=== PATIENT | female | born 1940 | race Caucasian/White ===

== ENCOUNTER 2018-10-27 11:47 | Inpatient (IN) | payer MEDICARE, OTHER ==
[~2018-10-27] VITALS: Ht 160 cm; Wt 74.5 kg
[2018-10-27] MEDS ORDERED: SODIUM CHLORIDE 0.9% 1,000 ML IVB ONE (11:59)
[2018-10-27] MEDS ORDERED: LORazepam 2MG/ML-1ML VIAL IV ONE (12:00)
[2018-10-27 13:08] LABS: Basophils # (auto) 0 uL; Basophils % (auto) 0.5 % (0.0-2.0); Eosinophils # (auto) 0.1 uL; Eosinophils % (auto) 0.9 % (0.0-7.0); Hematocrit 36.7 % (36.0-46.0); Hemoglobin 12.7 g/dL (12.2-16.2); Lymphocytes # (auto) 1.3 uL; Lymphocytes % (auto) 22.3 % (10.0-50.0); Mean Corpuscular Hgb Conc. 34.7 g/dL (32.0-36.0); Mean Corpuscular Volume 89.5 fL (80.0-100.0); Monocytes # (auto) 0.4 uL; Monocytes % (auto) 7.6 % (0.0-12.0); Neutrophils % (auto) 68.7 % (37.0-80.0); Platelet Count (auto) 297 10^3/uL (140-450); Red Cell Distribution Width 13.6 % (11.8-14.3); White Blood Cell 5.8 10^3/uL (4.4-10.8)
[2018-10-27 13:27] LABS: Alanine Aminotransferase 12 U/L (13-56); Albumin 3.7 g/dL (3.4-5.0); Anion Gap 8 (5-15); Aspartate Aminotransferase 10 U/L (15-37); BUN/Creatinine Ratio 14.8; Blood Alcohol < 3.0 mg/dL (0-5); Blood Urea Nitrogen 9 mg/dL (7-18); Calcium 8.8 mg/dL (8.5-10.1); Carbon Dioxide 27 mmol/L (21-32); Chloride 98 mmol/L (98-107); GFR African American 123 mL/min; GFR Non-African American 101 mL/min; Glucose 111 mg/dL (74-106); Magnesium 2.9 mg/dL (1.6-2.6); Sodium 133 mmol/L (136-145)
[2018-10-27 13:29] LABS: Alkaline Phosphatase 71 U/L (45-117); Bilirubin, Total 0.4 mg/dL (0.2-1.0); Total Protein 7.3 g/dL (6.4-8.2)
[2018-10-27 13:37] LABS: Carbamazepine (Tegretol) 8.7 ug/mL (4-12)
[2018-10-27] MEDS ORDERED: ACETAMINOPHEN 500 MG TAB PO PRN (14:30)
[2018-10-27] MEDS ORDERED: POTASSIUM EFFERVESENT TAB 25 MEQ PO ONE (14:30)
[2018-10-27] MEDS ORDERED: LORazepam 2MG/ML-1ML VIAL IV PRN (14:30)
[2018-10-27] MEDS ORDERED: MORPHINE SULF INJ 2 MG/ML SYRINGE 1ML IV PRN (14:30)
[2018-10-27] MEDS ORDERED: HYDROcodone-ACET 5/325MG TAB PO PRN (14:30)
[2018-10-27] MEDS ORDERED: NITROGLYCERIN 0.4 MG SL TAB SL PRN (14:30)
[2018-10-27] MEDS: SODIUM CHLORIDE 0.9% 1,000 ML IV SCH (15:22)
[2018-10-27] MEDS ORDERED: POTASSIUM CHL 20 Meq TABLET PO ONE (15:30)
[2018-10-27] MEDS: MORPHINE SULF INJ 2 MG/ML SYRINGE 1ML IV PRN ×2 (16:33→22:13)
[2018-10-27] MEDS: ONDANSETRON HCL 4 MG/2 ML VIAL IV PRN ×2 (16:34→22:13)
[2018-10-27 19:38] LABS: Alcohol, Urine < 3.0 mg/dL (0-5); Amphetamine Screen, Urine NEGATIVE (NEGATIVE); Barbiturate Scree,Urine POSITIVE (NEGATIVE); Benzodiazephine Screen, Urine NEGATIVE (NEGATIVE); Cannabinoid Screen, Urine NEGATIVE (NEGATIVE); Cocaine Screen, Urine NEGATIVE (NEGATIVE); Opiate Scree,Urine NEGATIVE (NEGATIVE); Phencyclidine Screen, Urine NEGATIVE (NEGATIVE)
--- NOTE | 2018-10-27 20:20 | NUR ---
PT ARRIVED ON UNIT PT ARRIVED ON UNIT VIA STRETCHER. NO S/S OF SOB. PT STATES THAT SHE IS IN SOME PAIN. PT IS A/OX4. ORIENTED PT TO CALL LIGHT AND PHONE. WILL CONTINUE TO MONITOR FOR CHANGES.
[2018-10-27 20:44] VITALS: BP 137/65
[2018-10-27] MEDS: PHENobarbital 32.4 MG TAB PO SCH (21:36)
[2018-10-27] MEDS: carBAMazepine 200 MG TAB PO SCH (21:36)
--- NOTE | 2018-10-27 21:59 | NUR ---
Missing Medications Upon medication reconciliation, pt states that she is missing a couple of her home medications that she had when in the ED. She states that "not all of my medications are here, they were here when I was in the emergency room. They are in a plastic round container". I have called the ED and they stated that they will look for the missing medications. Will follow up and input the missing medications.
[2018-10-27 22:00] VITALS: BP 147/76
[2018-10-27] MEDS ORDERED: FAMOTIDINE (10MG/ML) 2ML VL IV SCH (22:00)
[2018-10-27] MEDS ORDERED: PROM25TA5 PO (23:19)
[2018-10-27] MEDS ORDERED: DIPH1TAB PO (23:19)
[2018-10-27] MEDS ORDERED: METO-169 PO (23:19)
[2018-10-27] MEDS ORDERED: BENZ100C97 PO (23:19)
[2018-10-27] MEDS ORDERED: OMEP20TA PO (23:19)
[2018-10-27] MEDS ORDERED: CARB100C3 PO (23:19)
[2018-10-27] MEDS ORDERED: METH750T3 PO (23:19)
[2018-10-27] MEDS ORDERED: PHEN32.49 PO (23:19)
--- NOTE | 2018-10-27 23:36 | NUR ---
Unable to Attain Family Hx Pt states that she is adopted and therefore does not know her biological family history.
[2018-10-28] MEDS: SODIUM CHLORIDE 0.9% 1,000 ML IV SCH ×3 (01:00→21:00)
[2018-10-28] MEDS: ONDANSETRON HCL 4 MG/2 ML VIAL IV PRN ×2 (08:12→22:02)
[2018-10-28] MEDS: MORPHINE SULF INJ 2 MG/ML SYRINGE 1ML IV PRN ×2 (08:13→22:02)
--- NOTE | 2018-10-28 08:15 | NUR ---
Patient complained that in the ER she lose two of her OTC medications. (Zyrtec and Salon patches). Also that they dropped one of her pill bottles and half of them are gone because the pills went all over the floor. She also has her home medications in the drawer at bedside and wants to wait for the doctor to show him/her the correct doses of her medications because she states they are ordered wrong. Explained that we still can't keep the medications at bedside and the patient said just until the MD comes to show them. Will take meds to phar. later after MD makes rounds. Addendum: 10/28/18 at 0926 by Bobbi Reyes RN that the ER lost two of her OTC medications
--- NOTE | 2018-10-28 08:16 | NUR ---
Patient refused to place her medications at the pharmacy and she also stated that she some of her meds is missing, Brody (JOSÉ MIGUEL) made aware.
--- NOTE | 2018-10-28 08:45 | NUR ---
Spoke to ER staff and they said that the patient had a friend there that may have the OTC medications with him. Also that the Financial Systems Manager opened the pill bottle and did drop the pills on the floor.
[2018-10-28 08:54] VITALS: BP 129/59
[2018-10-28 09:28] LABS: Basophils # (auto) 0 uL; Eosinophils # (auto) 0.1 uL; Eosinophils % (auto) 2.2 % (0.0-7.0); Hematocrit 36.8 % (36.0-46.0); Hemoglobin 12.5 g/dL (12.2-16.2); Lymphocytes # (auto) 1.4 uL; Lymphocytes % (auto) 30.1 % (10.0-50.0); Mean Corpuscular Hemoglobin 30.8 pg (28.0-32.0); Mean Corpuscular Hgb Conc. 33.9 g/dL (32.0-36.0); Mean Corpuscular Volume 90.8 fL (80.0-100.0); Monocytes # (auto) 0.4 uL; Monocytes % (auto) 8.9 % (0.0-12.0); Neutrophils # (auto) 2.8 uL; Neutrophils % (auto) 57.8 % (37.0-80.0); Nucleated Red Blood Cells % 0.1 %; Platelet Count (auto) 319 10^3/uL (140-450); Red Blood Cells 4.06 10^6/uL (4.0-5.20); Red Cell Distribution Width 13.7 % (11.8-14.3); White Blood Cell 4.8 10^3/uL (4.4-10.8)
[2018-10-28 09:45] LABS: Potassium 3.6 mmol/L (3.5-5.1)
[2018-10-28 09:50] LABS: Calcium 8.4 mg/dL (8.5-10.1); Magnesium 2.7 mg/dL (1.6-2.6)
[2018-10-28] MEDS: PHENobarbital 32.4 MG TAB PO SCH ×2 (09:51→21:31)
[2018-10-28] MEDS: carBAMazepine 200 MG TAB PO SCH ×2 (09:51→21:31)
[2018-10-28] MEDS: FAMOTIDINE 20 MG TAB PO SCH (09:51)
[2018-10-28] MEDS: amLODIPine BESYLATE 5 MG TAB PO SCH (09:51)
[2018-10-28 12:30] VITALS: BP 129/73
--- NOTE | 2018-10-28 14:00 | NUR ---
Patient refused CT scan.
--- NOTE | 2018-10-28 14:10 | NUR ---
Patient refused Psy consultation.
--- NOTE | 2018-10-28 14:15 | NUR ---
Patient changed her mind, wants CT now.
--- NOTE | 2018-10-28 14:24 | NUR ---
Recdeived referral to see pt who is alert and oriented. Pt is having family issues that have been going on for years. The siblings are fighting over money. Informed pt that she might need some legal advise. Gave pt the Advance Directive.
--- NOTE | 2018-10-28 14:30 | NUR ---
REQUESTING DR. ELLIOTT PATIENT REQUESTED DR. ELLIOTT TO BE HER HOSPITALIST TOMORROW, WILL ENDORSE TO NEXT SHIFT.
--- NOTE | 2018-10-28 15:28 | NUR ---
REQUESTING CHANGED TO DR. Keshav DAVENPORT Patient requesting Dr. Keshav Davenport to her hospitalist for tomorrow, will endorse to next shift.
--- NOTE | 2018-10-28 16:15 | NUR ---
Patient is having asthma attack, Oxygen cannular 2 L placed. VS ; T 98.0 HR 91 RR 22 O2 95% BP 163/99, Dr. Flaherty paged.
--- NOTE | 2018-10-28 16:16 | NUR ---
Received new orders from Dr. Flaherty, RT paged for Breathing treatment.
--- NOTE | 2018-10-28 16:30 | NUR ---
Dr. Flaherty called back stated Dr. Keshav Purvis made aware of patient is requesting Dr. Keshav purvis to her hospitalist.
[2018-10-28] MEDS ORDERED: IPRATROPIUM BROM 0.5 MG/2.5ML INH SOL ONE (16:32)
[2018-10-28] MEDS ORDERED: ALBUTEROL SULF 2.5 MG/0.5ML(0.5%) NEB SOLN ONE (16:32)
[2018-10-28] MEDS: ALBUTEROL SULF 2.5 MG/0.5ML(0.5%) NEB SOLN NEB PRN ×2 (16:36→21:14)
[2018-10-28] MEDS: IPRATROPIUM BROM 0.5 MG/2.5ML INH SOL NEB PRN ×2 (16:36→21:14)
[2018-10-28 17:11] VITALS: BP 134/68
--- NOTE | 2018-10-28 19:57 | NUR ---
Opening Note Assumed pt care from day shift nurse. Pt is a/ox4 with no s/s of distress or SOB. Pt is currently out of bed on the bedside commode. Pt tolerated ambulation to commode without difficulty. Discussed POC with pt; pt verbalized understanding. Safety measures maintained with side barnes;s up, bed in lowest position, side rails padded and call light within reach. Will continue to monitor for changes q1hr and prn.
[2018-10-28 21:26] VITALS: BP 134/68
[2018-10-28 22:00] VITALS: BP 120/71
--- NOTE | 2018-10-28 23:23 | NUR ---
Dr James At Bedside Dr James advised pt to visit him at his office this next Friday 11/03 at 1100. No new orders implemented at this time.
[2018-10-29] VITALS (7 sets, daily range): BP systolic 127–143; BP diastolic 59–85
[2018-10-29] MEDS: ALBUTEROL SULF 2.5 MG/0.5ML(0.5%) NEB SOLN NEB PRN ×4 (01:19→18:38)
[2018-10-29] MEDS: IPRATROPIUM BROM 0.5 MG/2.5ML INH SOL NEB PRN ×4 (01:19→18:38)
[2018-10-29] MEDS: SODIUM CHLORIDE 0.9% 1,000 ML IV SCH ×2 (03:41→14:11)
[2018-10-29] MEDS: ONDANSETRON HCL 4 MG/2 ML VIAL IV PRN ×2 (06:41→22:10)
[2018-10-29] MEDS: MORPHINE SULF INJ 2 MG/ML SYRINGE 1ML IV PRN ×2 (06:48→22:10)
--- NOTE | 2018-10-29 07:40 | NUR ---
OPENING SHIFT NOTE Received report on patient , patient is comfortably resting in bed. bed at lowest locked position, side rails up x2 and call light within reach. Will continue to round prn.
[2018-10-29] MEDS: FAMOTIDINE 20 MG TAB PO SCH (10:00)
[2018-10-29] MEDS: PHENobarbital 32.4 MG TAB PO SCH ×2 (10:07→22:09)
[2018-10-29] MEDS: amLODIPine BESYLATE 5 MG TAB PO SCH (10:07)
[2018-10-29] MEDS: carBAMazepine 200 MG TAB PO SCH ×2 (10:08→22:10)
--- NOTE | 2018-10-29 19:40 | NUR ---
Opening Shift Note Assumed care of patient, alert and oriented x 4. On 2L oxygen via nasal cannula. Ambulatory with min assist to bedside commode. No S/S of distress/SOB or pain. Bed in lowest locked position, side rails up x 2, call light within reach, seizure precautions in place. Instructed on POC and to call for assist PRN, will continue to monitor for changes Q1hr and PRN.
[2018-10-30] VITALS (7 sets, daily range): BP systolic 123–180; BP diastolic 60–88
[2018-10-30] MEDS: SODIUM CHLORIDE 0.9% 1,000 ML IV SCH (03:00)
[2018-10-30] MEDS: ONDANSETRON HCL 4 MG/2 ML VIAL IV PRN ×2 (07:15→18:01)
[2018-10-30] MEDS: MORPHINE SULF INJ 2 MG/ML SYRINGE 1ML IV PRN ×2 (07:15→20:25)
--- NOTE | 2018-10-30 07:20 | NUR ---
Opening Shift Note Assumed care of patient, awake and alert. No S/S of distress/SOB or pain. Instructed on POC and to call for assist PRN, will continue to monitor for changes Q1hr and PRN.
[2018-10-30] MEDS: FAMOTIDINE 20 MG TAB PO SCH (09:58)
[2018-10-30] MEDS: carBAMazepine 200 MG TAB PO SCH ×2 (09:59→22:00)
[2018-10-30] MEDS: amLODIPine BESYLATE 5 MG TAB PO SCH (10:00)
[2018-10-30] MEDS: PHENobarbital 32.4 MG TAB PO SCH ×2 (10:00→22:00)
[2018-10-30] MEDS ORDERED: LEVOFLOXACIN 500 MG TAB PO ONE (11:00)
[2018-10-30] MEDS: ALBUTEROL SULF 2.5 MG/0.5ML(0.5%) NEB SOLN NEB SCH ×3 (11:15→23:13)
[2018-10-30] MEDS: ACETYLCYSTEINE 10 %(100MG/ML) SOL 4ML NEB SCH ×3 (11:15→23:13)
[2018-10-30] MEDS: IPRATROPIUM BROM 0.5 MG/2.5ML INH SOL NEB SCH ×3 (11:34→23:13)
[2018-10-30] MEDS ORDERED: LACTULOSE 20Gm/30ML SOLN PO PRN (12:45)
[2018-10-30] MEDS ORDERED: LACTULOSE 20Gm/30ML SOLN PO ONE (12:45)
--- NOTE | 2018-10-30 13:10 | NUR ---
assessment Patient is a 78 year old female who is alert and oriented. Prior to admission patient lived home alone and functioned independently. Patients PCP is Dr James. Patient has a fww for home use. Patient informed me she feels safe returning home on discharge. I informed patient she has a ss consult that states she is concerned for her well being due to family issues. Patient informed me her mother is having issues with her will and patients brother. Patient informed me her brother wants to be the POA for financial issues. I informed patient that I could not help her with her mothers and brothers last will and testament. Patient informed me she is fine and she is not worried about her well being. Patient may benefit from a home health safety and med management on discharge. Patient verbalized understanding and agreed to discharge plan home. Addendum: 10/30/18 at 1318 by Fawn SHEPARD Amended: Links added.
--- NOTE | 2018-10-30 14:10 | NUR ---
Reaction Patient calling out stating she is having allergic reaction to lactulose. Patient reports swollen tongue and shortness of breath. Upon assessment vital signs stable, tongue not swollen. Dr. Sandoval notified; Jeremías ordered.
[2018-10-30] MEDS ORDERED: diphenhdrAMINE HCL 50 MG/1 ML VL IV ONE (14:15)
--- NOTE | 2018-10-30 16:47 | NUR ---
D/C planning Per consult for home health safety evaluation, physical therapy, and medication management. Per Fawn Bobby requested [facility] ph:) Fax: ( [phone]) faxed medical records. Per Mike Bhatti Pt has been accepted and service to start within 48 hrs upon d/c. Addendum: 10/30/18 at 1650 by ANGY LE Amended: Links added.
--- NOTE | 2018-10-30 18:00 | NUR ---
Respiratory note: PT REFUSED MED NEB TX AT THIS TIME. PT CLAIMS IT UPSETS HER STOMACH. PT IN NO RESPIRATORY DISTRESS, WILL RETURN FOR NEXT SCHEDULED MED NEB TX.
--- NOTE | 2018-10-30 19:50 | NUR ---
Opening Shift Note Assumed care of patient, alert and oriented x 4. Ambulatory with min assist to bedside commode. Patient appears anxious and nauseated. Reported pain level of 8/10. Bed in lowest locked positions, side rails up x 2, call light within reach, seizure precautions in place, padding on side rails and suction working at bedside. Instructed on POC and to call for assist PRN, will continue to monitor for changes Q1hr and PRN.
[2018-10-30] MEDS: BISACODYL 5 MG EC TAB PO SCH (22:00)
[2018-10-31] MEDS: ONDANSETRON HCL 4 MG/2 ML VIAL IV PRN ×2 (00:19→06:16)
[2018-10-31] MEDS: MORPHINE SULF INJ 2 MG/ML SYRINGE 1ML IV PRN ×2 (02:12→06:16)
[2018-10-31 04:30] VITALS: BP 111/78
[2018-10-31] MEDS: IPRATROPIUM BROM 0.5 MG/2.5ML INH SOL NEB SCH ×2 (06:39→11:54)
[2018-10-31] MEDS: ALBUTEROL SULF 2.5 MG/0.5ML(0.5%) NEB SOLN NEB SCH ×2 (06:40→11:55)
[2018-10-31] MEDS: ACETYLCYSTEINE 10 %(100MG/ML) SOL 4ML NEB SCH ×2 (06:40→11:55)
[2018-10-31 09:49] VITALS: BP 162/77
[2018-10-31] MEDS ORDERED: LEVO-28 PO (09:57)
[2018-10-31] MEDS: BISACODYL 5 MG EC TAB PO SCH (10:00)
[2018-10-31] MEDS ORDERED: LEVOFLOXACIN 500 MG TAB PO SCH (10:00)
[2018-10-31] MEDS: PHENobarbital 32.4 MG TAB PO SCH (10:28)
[2018-10-31] MEDS: FAMOTIDINE 20 MG TAB PO SCH (10:29)
[2018-10-31] MEDS: carBAMazepine 200 MG TAB PO SCH (10:29)
[2018-10-31 10:54] VITALS: BP 129/60
== END 2018-10-31 11:45 | disposition home health service (06) | DRG 100 ==
LOC: EDUNIT# 11:47 → EDBD 11:47 → ER 11:47 → TELE 11:48 → TELE-CENTR 20:32 → CENTRAL 10-30 12:21
PROVIDERS: ADMIT Nurse Practitioner Acute Care; ATTEND Internal Medicine
DX: G40.909 Epilepsy, unspecified, not intractable, without status epilepticus (principal); J96.00 Acute respiratory failure, unspecified whether with hypoxia or hypercapnia; E87.1 Hypo-osmolality and hyponatremia; J45.901 Unspecified asthma with (acute) exacerbation; I10 Essential (primary) hypertension; E87.6 Hypokalemia; I05.9 Rheumatic mitral valve disease, unspecified; J44.9 Chronic obstructive pulmonary disease, unspecified; M19.90 Unspecified osteoarthritis, unspecified site; M48.02 Spinal stenosis, cervical region; K21.9 Gastro-esophageal reflux disease without esophagitis; I67.2 Cerebral atherosclerosis; Z86.73 Personal history of transient ischemic attack (TIA), and cerebral infarction without residual deficits; I25.2 Old myocardial infarction; Z86.61 Personal history of infections of the central nervous system; Z79.899 Other long term (current) drug therapy; Z88.8 Allergy status to other drugs, medicaments and biological substances; Z88.6 Allergy status to analgesic agent; Z88.1 Allergy status to other antibiotic agents; Z88.5 Allergy status to narcotic agent; Z88.0 Allergy status to penicillin; Z91.013 Allergy to seafood
CPT/HCPCS: 36415; 70450; 71045; 72125; 80048; 80053; 80156; 80184; 80307; 80320; 83735; 85025; 87070; 87205; 93005; 93306; 94640; 94761; 96361; 96374; 96375; 97116; 97163; 97530; G0378; J2405

== ENCOUNTER 2019-08-21 17:27 | Emergency (ER) | payer MEDICARE, OTHER ==
[~2019-08-21] VITALS: Ht 165.1 cm; Wt 81.6 kg
[~2019-08-21 17:27] MED LIST: BENZ100C97 PO; CARB100C3 PO; DIPH1TAB PO; LEVO-28 PO; METH750T3 PO; METO-169 PO; OMEP20TA PO; PHEN32.44 PO; PROM25TA5 PO
[2019-08-21 19:03] LABS: Basophils # (auto) 0 10 ^3/uL (0-0.2); Basophils % (auto) 0.4 % (0.0-2.0); Eosinophils # (auto) 0.1 10 ^3/uL (0-0.8); Eosinophils % (auto) 1.7 % (0.0-7.0); Hematocrit 40.3 % (36.0-46.0); Hemoglobin 13.3 g/dL (12.2-16.2); Lymphocytes # (auto) 1.4 10 ^3/uL (0.4-5.4); Lymphocytes % (auto) 18.6 % (10.0-50.0); Mean Corpuscular Hemoglobin 30.5 pg (28.0-32.0); Mean Corpuscular Hgb Conc. 32.9 g/dL (32.0-36.0); Mean Corpuscular Volume 92.7 fL (80.0-100.0); Monocytes # (auto) 0.6 10 ^3/uL (0-1.3); Monocytes % (auto) 7.4 % (0.0-12.0); Neutrophils # (auto) 5.5 10 ^3/uL (1.6-8.6); Neutrophils % (auto) 71.9 % (37.0-80.0); Nucleated Red Blood Cells % 0.1 %; Platelet Count (auto) 270 10^3/uL (140-450); Red Blood Cells 4.35 10^6/uL (4.0-5.20); Red Cell Distribution Width 13.6 % (11.8-14.3); White Blood Cell 7.7 10^3/uL (4.4-10.8)
[2019-08-21 19:17] LABS: Alanine Aminotransferase 21 U/L (13-56); Albumin 3.8 g/dL (3.4-5.0); Anion Gap 9 (5-15); Aspartate Aminotransferase 13 U/L (15-37); BUN/Creatinine Ratio 21.8; Blood Urea Nitrogen 17 mg/dL (7-18); Calcium 8.4 mg/dL (8.5-10.1); Carbon Dioxide 24 mmol/L (21-32); Chloride 96 mmol/L (98-107); GFR African American 92 mL/min; GFR Non-African American 76 mL/min; Glucose 101 mg/dL (74-106); Magnesium 2.5 mg/dL (1.6-2.6); Potassium 3.8 mmol/L (3.5-5.1); Sodium 129 mmol/L (136-145)
[2019-08-21 19:20] LABS: Carbamazepine (Tegretol) 8.3 ug/mL (4-12)
[2019-08-21 19:22] LABS: Alkaline Phosphatase 81 U/L (45-117); Bilirubin, Total 0.3 mg/dL (0.2-1.0); Total Protein 7.6 g/dL (6.4-8.2)
[2019-08-21] MEDS ORDERED: HYDROcodone-ACET 5/325MG TAB PO ONE (20:15)
[2019-08-21 20:45] VITALS: BP 168/75
== END 2019-08-21 21:24 | disposition home or self-care (01) ==
LOC: ER 17:27 → EDBD 17:27 → ER 21:24
DX: S16.1XXA Strain of muscle, fascia and tendon at neck level, initial encounter (principal); S40.012A Contusion of left shoulder, initial encounter; S09.8XXA Other specified injuries of head, initial encounter; Z88.8 Allergy status to other drugs, medicaments and biological substances; Z88.6 Allergy status to analgesic agent; Z88.1 Allergy status to other antibiotic agents; Z79.899 Other long term (current) drug therapy; Z90.49 Acquired absence of other specified parts of digestive tract; W19.XXXA Unspecified fall, initial encounter; Y93.89 Activity, other specified; Y92.89 Other specified places as the place of occurrence of the external cause; Y99.8 Other external cause status
CPT/HCPCS: 36415; 70450; 72125; 73030; 80053; 80156; 80184; 83735; 84484; 85025; 93005

== ENCOUNTER 2024-09-11 09:11 | Inpatient (IN) | payer MEDICARE, OTHER ==
[~2024-09-11] VITALS: Ht 160 cm; Wt 78.3 kg
[~2024-09-11 09:11] MED LIST changes: -DIPH1TAB PO; -LEVO-28 PO; +LEVO500T91 PO; +METH-1182 PO; -METH750T3 PO; -METO-169 PO; +METO-289 PO; +PROM25TA10 PO; -PROM25TA5 PO; +[UNRECOGNIZED DRUG - CODE] PO
--- NOTE | 2024-09-11 09:42 | ED.PDOC ---
History of Present Illness HPI Comments 83 year old female with a Hx of HTN, Asthma, AR, CVA, GERD, High Lipids, and a Mitral Valve prolapse presents to the ED for the c/c of a Lesion to her Labia region. Pt states that she has had her lesion for the past 2x weeks, and notes of associated SOB and Generalized weakness at this time. Pt is noted to be SAT on 100 RA w/o O2 assistance. No other associated symptoms, modifiers, recent injuries or sick contacts present at this time. Time Seen by MD: 09:37 Primary Care Provider: ETHEL Reviewed Notes: Nurses Notes, Medications, Allergies Allergies: Coded Allergies: Aspirin (Verified Allergy, Unknown, 10/27/18) Azithromycin (Verified Allergy, Unknown, 10/27/18) Codeine (Verified Allergy, Unknown, 10/27/18) Penicillins (Verified Allergy, Unknown, 10/27/18) Phenytoin (Verified Allergy, Unknown, 10/27/18) Shellfish Allergy (Verified Allergy, Unknown, 10/27/18) Tetracycline (Verified Allergy, Unknown, 10/27/18) Home Meds Active Scripts Levofloxacin Hemihydrate (LEVOFLOXACIN) 500 Mg Tab, 500 MG PO DAILY for 4 Days, #4 TAB Prov:KATHRYN LEON MD 10/31/18 Reported Medications Omeprazole (Gnp Omeprazole) 20 Mg Tab, 20 MG PO BID, TAB 10/27/18 Diphenoxylate W/ Atropine (Diphenoxylate Hydrochlori 2.5-0.025 mg) 1 Tab Tab, 1 TAB PO 6XD, TAB 10/27/18 Phenobarbital (PHENOBARBITAL) 32.4 Mg Tb, 32.4 MG PO TID 10/27/18 Benzonatate (Benzonatate) 100 Mg Cap, 1 CAP PO BID, #30 CAP 10/27/18 Metoprolol Succinate (Metoprolol Succinate Er) 50 Mg Tab, 50 MG PO DAILY for 30 Days, MG 10/27/18 Methocarbamol (Methocarbamol) 750 Mg Tab, 750 MG PO TID for 30 Days, MG 10/27/18 Promethazine Hcl (Promethazine Hcl) 25 Mg Tab, 25 MG PO ONCE 10/27/18 Carbamazepine (Carbamazepine) 100 Mg Chw, 200 MG PO TID for 30 Days, MG 10/27/18 Information Source: Patient Mode of Arrival: Wheelchair Severity: Moderate Timing: Weeks Duration: Since onset Prehospital treatment: None Past Medical History PAST MEDICAL HISTORY: Cancer, COPD, CVA, GERD, High Lipids, HTN, AR, Seizures Surgical History: Hysterectomy, Tonsillectomy SAFETY INSPECTOR History: No Pertinent SAFETY INSPECTOR History Family History Family History: Family hx of heart dino Social History Smoker: Non-Smoker Alcohol: Denies ETOH Use Drugs: Denies Drug Use Lives In: Home Constitutional: denies: chills, diaphoresis, fatigue, fever, malaise, sweats, weakness, others EENTM: denies: blurred vision, double vision, ear bleeding, ear discharge, ear drainage, ear pain, ear ringing, eye pain, eye redness, hearing loss, mouth pain, mouth swelling, nasal discharge, nose bleeding, nose congestion, nose pain, photophobia, tearing, throat pain, throat swelling, voice changes, others Respiratory: reports: SOB at rest, shortness of breath; denies: cough, hemoptysis, orthopnea, SOB with excertion, stridor, wheezing, others Cardiovascular: denies: chest pain, dizzy spells, diaphoresis, Dyspnea on exertion, edema, irregular heart beat, left arm pain, lightheadedness, palpitations, PND, syncope, others Gastrointestinal: denies: abdomen distended, abdominal pain, blood streaked bowels, constipated, diarrhea, dysphagia, difficulty swallowing, hematemesis, melena, nausea, poor appetite, poor fluid intake, rectal bleeding, rectal pain, vomiting, others Genitourinary: denies: abnormal vagina bleeding, burning, dyspareunia, dysuria, flank pain, frequency, hematuria, incontinence, pain, , vagina discharge, urgency, others Neurological: denies: dizziness, fainting, headache, left sided numbness, left sided weakness, numbness, paresthesia, pre-existing deficit, right sided numbness, right sided weakness, seizure, speech problems, tingling, tremors, weakness, others Musculoskeletal: denies: back pain, gout, joint pain, joint swelling, muscle pain, muscle stiffness, neck pain, others Integumetry: reports: lesions; denies: bruises, change in color, change in hair/nails, dryness, laceration, lumps, rash, wounds, others Allergic/Immunocompromised: denies: Difficulty Healing, Frequent Infections, Hives, Itching, others Hematologic/Lymphatic: denies: anemia, blood clots, easy bleeding, easy bruising, swollen glands, others Endocrine: denies: excessive hunger, excessive sweating, excessive thirst, excessive urination, flushing, intolerance to cold, intolerance to heat, unexplained weight gain, unexplained weight loss, others Psychiatric: denies: anxiety, bipolar disorder, depression, hopeless, panic disorder, schizophrenia, sleepless, suicidal, others All Other Systems: Reviewed and Negative Physical Exam General Appearance: Moderate Distress, Normal HEENT: Normal ENT Inspection, Pharynx Normal, TMs Normal Neck: Full Range of Motion, Non-Tender, Normal, Normal Inspection Respiratory: Accessory Muscle Use, Chest Non-Tender, No Accessory Muscle Use, Other (Coarse breath sounds) Cardiovascular: No Edema, No JVD, No Murmur, No Gallop, Normal Peripheral Pulses, Regular Rate/Rhythm Breast Exam: Deferred Gastrointestinal: No Organomegaly, Non Tender, No Pulsatile Mass, Normal Bowel Sounds, Soft Genitalia: Deferred Pelvic: Deferred Rectal: Deferred Extremities: No calf tenderness, Normal capillary refill, Non-tender, No pedal edema Musculoskeletal : Apperance: Normal Neurologic: Alert, electronic installer II-XII nml as Tested, No Motor Deficits, Normal Affect, Normal Mood, No Sensory Deficits Cerebellar Function: NOT DONE Reflexes: NOT DONE Skin: Dry, Normal Color, Warm Peripheral Pulses: 3+ Radial (R), 3+ Radial (L) Lymphatic: No Adenopathy Was a procedure done? Was a procedure done?: No Differential Dx Considerations may include: Pneumonitis Electrolyte imbalance X-Ray, Labs, Meds, VS Vital Signs Date Time Temp Pulse Resp B/P (MAP) Pulse Ox O2 Delivery O2 Flow Rate FiO2 09/11/24 10:20 98.4 80 18 141/70 (93) 98 98.4 09/11/24 10:20 80 18 98 Room Air* 0 21 09/11/24 09:27 98.3 78 20 121/53 (75) 99 98.3 Lab Test 09/11/24 10:33 09/11/24 09:21 Range/Units White Blood Count 5.5 4.4-10.8 10^3/uL Red Blood Count 3.81 L 4.0-5.20 10^6/uL Hemoglobin 11.5 L 12.2-16.2 g/dL Hematocrit 33.4 L 36.0-46.0 % Mean Corpuscular Volume 87.7 80.0-100.0 fL Mean Corpuscular Hemoglobin 30.2 28.0-32.0 pg Mean Corpuscular Hemoglobin Concent 34.4 32.0-36.0 g/dL Red Cell Distribution Width 13.4 11.8-14.3 % Platelet Count 262 140-450 10^3/uL Mean Platelet Volume 6.7 L 6.9-10.8 fL Neutrophils (%) (Auto) 57.8 37.0-80.0 % Lymphocytes (%) (Auto) 24.8 10.0-50.0 % Monocytes (%) (Auto) 15.6 H 0.0-12.0 % Eosinophils (%) (Auto) 1.3 0.0-7.0 % Basophils (%) (Auto) 0.5 0.0-2.0 % Neutrophils # (Auto) 3.2 1.6-8.6 10 ^3/uL Lymphocytes # (Auto) 1.4 0.4-5.4 10 ^3/uL Monocytes # (Auto) 0.9 0-1.3 10 ^3/uL Eosinophils # (Auto) 0.1 0-0.8 10 ^3/uL Basophils # (Auto) 0 0-0.2 10 ^3/uL Nucleated Red Blood Cells 0.1 % Prothrombin Time 11.4 9.3-11.8 sec Prothrombin Time INR 1.08 0.9-1.15 Activated Partial Thromboplast Time 31.0 24.5-34.5 SEC Sodium Level 132 L 136-145 mmol/L Potassium Level 3.3 L 3.5-5.1 mmol/L Chloride Level 96 L 98-107 mmol/L Carbon Dioxide Level 24 20-31 mmol/L Anion Gap 12 5-15 Blood Urea Nitrogen 7 L 9-23 mg/dL Creatinine 0.88 0.550-1.02 mg/dL Glomerular Filtration Rate Calc 66 >90 mL/min BUN/Creatinine Ratio 8.0 L 10.0-20.0 Serum Glucose 107 H 74-106 mg/dL Lactic Acid Level 1.7 0.4-2.0 mmol/L Calcium Level 9.7 8.7-10.4 mg/dL Total Bilirubin 0.4 0.2-1.0 mg/dL Aspartate Amino Transferase (AST) 19 13-40 U/L Alanine Aminotransferase (ALT) < 9 7-40 U/L Alkaline Phosphatase 69 46-116 U/L Total Protein 6.8 5.7-8.2 g/dL Albumin 4.4 3.2-4.8 g/dL POC Glucose 120 H 70-106 mg/dl Current Medications Medications (Trade) Dose Ordered Sig/Ayden Route Start Time Stop Time Status Last Admin Sodium Chloride 1,000 ml @ 1,000 mls/hr Q1H ONCE IV 09/11/24 09:45 09/11/24 10:44 DC 09/11/24 10:32 Levofloxacin/ Dextrose 100 ml @ 100 mls/hr ONCE ONCE IV 09/11/24 10:45 09/11/24 11:11 DC 09/11/24 10:51 Methylprednisolone Sodium Succinate (Solu Medrol) 125 mg ONCE ONCE IV 09/11/24 11:15 09/11/24 11:16 DC 09/11/24 11:16 Diphenhydramine HCl (Benadryl Injection) 25 mg ONCE ONCE IV 09/11/24 11:15 09/11/24 11:16 DC 09/11/24 11:16 Ondansetron HCl (Zofran) 4 mg ONCE ONCE IV 09/11/24 11:15 09/11/24 11:16 DC 09/11/24 11:16 Patient alert. Complaining of shortness a breath. Vitals stable. Answering questions. States that she has been having lesion in the pelvic area for some time She does not know exactly how the lesion has been there She is using accessory muscles for respiration Possible sepsis. Chest x-ray reviewed does show pneumonia. CT of the abdomen reviewed does show hernia. Was given antibiotics. Explained to the patient. Continue monitoring. Spoke with general surgeon. Intervention radiology consultation. Urology consultation. PATIENT: SIVA CASTILLO ACCT: [id number] UNIT: [id number] : 1940 LOC: ER ROOM / BED: / AGE / SEX: 83 / F ADM STATUS: REG ER SERVICE 0933 ORDERING PHYSICIAN: YUE HERNANDEZ MD PROCEDURE(s): CXRP - CHEST PORTABLE REASON: sob ORDER NUMBER(s): [id number], ACCESSION NUMBER(s): [id number] EXAM: XR Chest, 1 View CLINICAL INDICATION: Pain TECHNIQUE: Frontal view of the chest. COMPARISON: No relevant prior studies available. FINDINGS: LUNGS AND PLEURAL SPACES: Right basilar atelectasis or pneumonia. Pulmonary v enous congestion. No pneumothorax. HEART: Unremarkable. No cardiomegaly. MEDIASTINUM: Unremarkable. Normal mediastinal contour. BONES/JOINTS: Unremarkable. No acute fracture. IMPRESSION: 1. Right basilar atelectasis or pneumonia. 2. Pulmonary venous congestion. PATIENT: SIVA CASTILLO ACCT: [id number] UNIT: [id number] : 1940 LOC: ER ROOM / BED: / AGE / SEX: 83 / F ADM STATUS: REG ER SERVICE 0933 ORDERING PHYSICIAN: YUE HERNANDEZ MD PROCEDURE(s): ABPL - CT AB PEL WO CON-NO ORAL OR IV REASON: pelvicmass ORDER NUMBER(s): [id number], ACCESSION NUMBER(s): [id number] EXAM: CT Abdomen and Pelvis Without Intravenous Contrast CLINICAL INDICATION: Pain TECHNIQUE: Axial computed tomography images of the abdomen and pelvis without intravenous contrast. This CT exam was performed using one or more of the following dose reduction techniques: automated exposure control, adjustment of the mA and/or kV according to patient size, and/or use of iterative reconstruction technique. COMPARISON: No relevant prior studies available. FINDINGS: LUNG BASES: Unremarkable. No mass. No consolidation. ABDOMEN: LIVER: Fatty infiltration of the liver. GALLBLADDER AND BILE DUCTS: Unremarkable. No calcified stones. No ductal dilation. PANCREAS: Unremarkable. No ductal dilation. SPLEEN: Unremarkable. No splenomegaly. ADRENALS: Unremarkable. No mass. KIDNEYS AND URETERS: Unremarkable. No obstructing stones. No hydronephrosis. STOMACH AND BOWEL: Fecal retention in the colon consistent with constipation. Colonic diverticulosis without acute diverticulitis. No obstruction. PELVIS: APPENDIX: No findings to suggest acute appendicitis. BLADDER: Unremarkable. No stones. REPRODUCTIVE: Unremarkable as visualized. ABDOMEN and PELVIS: INTRAPERITONEAL SPACE: Unremarkable. No free air. No significant fluid collection. 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 No acute fracture. No dislocation. SOFT TISSUES: Umbilical hernia containing fat. VASCULATURE: Scattered calcified atherosclerotic disease of aorta. No abdominal aortic aneurysm. LYMPH NODES: Unremarkable. No enlarged lymph nodes. IMPRESSION: 1. Fecal retention in the colon consistent with constipation. 2. Umbilical hernia containing fat. 3. Colonic diverticulosis without acute diverticulitis. Time of 1ST Reevaluation: 10:07 Reevaluation 1ST: Unchanged Patient Education/Counseling: Diagnosis, Treatment, Need For Follow Up Family Education/Counseling: No Family Present SEPSIS Sepsis Screen Physician Orders Chest Portable (09/11/24 09:33) Ct Ab Pel Wo Con-No Oral Or Iv (09/11/24 09:33) Sodium Chloride 0.9% (09/11/24 09:45) Pharmacy Clarification: (09/11/24 09:42) Urinalysis (09/11/24 10:55) Blood Culture (09/11/24 10:55) * Radiologist Consult (09/11/24 11:52) * Urology Consult (09/11/24 11:53) Tamsulosin Hydrochloride (Flomax) (09/11/24 12:00) Vital Signs Date Time Temp Pulse Resp B/P (MAP) Pulse Ox O2 Delivery O2 Flow Rate FiO2 09/11/24 10:20 98.4 80 18 141/70 (93) 98 98.4 09/11/24 10:20 80 18 98 Room Air* 0 21 09/11/24 09:27 98.3 78 20 121/53 (75) 99 98.3 Laboratory Tests Test 09/11/24 10:33 Lactic Acid Level 1.7 mmol/L (0.4-2.0) White Blood Count 5.5 10^3/uL (4.4-10.8) Medications Medications Dose Ordered Sig/Ayden Route Start Time Stop Time Status Last Admin Dose Admin Diphenhydramine HCl 25 mg ONCE ONCE IV 09/11/24 11:15 09/11/24 11:16 DC 09/11/24 11:16 Levofloxacin/ Dextrose 100 ml @ 100 mls/hr ONCE ONCE IV 09/11/24 10:45 09/11/24 11:11 DC 09/11/24 10:51 Methylprednisolone Sodium Succinate 125 mg ONCE ONCE IV 09/11/24 11:15 09/11/24 11:16 DC 09/11/24 11:16 Ondansetron HCl 4 mg ONCE ONCE IV 09/11/24 11:15 09/11/24 11:16 DC 09/11/24 11:16 Sodium Chloride 1,000 ml @ 1,000 mls/hr Q1H ONCE IV 09/11/24 09:45 09/11/24 10:44 DC 09/11/24 10:32 Departure 1 Departure Time of Disposition: 09:48 Impression: Primary Impression: Sepsis Qualified Codes: A41.9 - Sepsis, unspecified organism Additional Impressions: Pneumonia Qualified Codes: J18.9 - Pneumonia, unspecified organism Kidney stone Disposition: ADMITTED INPATIENT Admit to: Med Surg Condition: Guarded Critical Care Note Critical Care Time?: Yes (90 min-critical care time only) Critical care comment: Monitor respiration Stability Stability form required: No Heart Score Heart Score: Heart Score Response (Comments) Value History Slightly Suspicious 0 EKG N/A 0 Age >65 2 Risk Factors 1 or 2 risk factors 1 Troponin N/A 0 Total 3 I personally scribed for YUE HERNANDEZ MD ([email or web address]) on 09/11/24 at 09:42. Electronically submitted by Baldemar Rees ([email or web address]). I personally scribed for YUE HERNANDEZ MD ([email or web address]) on 09/11/24 at 09:42. Electronically submitted by Baldemar Rees ([email or web address]). I personally scribed for YUE HERNANDEZ MD ([email or web address]) on 09/11/24 at 10:40. Electronically submitted by Baldemar Rees ([email or web address]). YUE HERNANDEZ MD Sep 11, 2024 09:42
[2024-09-11] MEDS ORDERED: CEFEPIME 1GM/ 50ML 50 ML IV ONE (09:45)
[2024-09-11] MEDS: SODIUM CHLORIDE 0.9% 1,000 ML IV ONE ×2 (09:45→10:32)
[2024-09-11] MEDS ORDERED: VANCOMYCIN 1GM/200ML PM 200 ML IV ONE (09:45)
--- NOTE | 2024-09-11 10:15 | DVH ---
EXAM: XR Chest, 1 View CLINICAL INDICATION: Pain TECHNIQUE: Frontal view of the chest. COMPARISON: No relevant prior studies available. FINDINGS: LUNGS AND PLEURAL SPACES: Right basilar atelectasis or pneumonia. Pulmonary venous congestion. No pneumothorax. HEART: Unremarkable. No cardiomegaly. MEDIASTINUM: Unremarkable. Normal mediastinal contour. BONES/JOINTS: Unremarkable. No acute fracture. IMPRESSION: 1. Right basilar atelectasis or pneumonia. 2. Pulmonary venous congestion.
--- NOTE | 2024-09-11 10:18 | DVH ---
EXAM: CT Abdomen and Pelvis Without Intravenous Contrast CLINICAL INDICATION: Pain TECHNIQUE: Axial computed tomography images of the abdomen and pelvis without intravenous contrast. This CT exam was performed using one or more of the following dose reduction techniques: automated exposure control, adjustment of the mA and/or kV according to patient size, and/or use of iterative r econstruction technique. COMPARISON: No relevant prior studies available. FINDINGS: LUNG BASES: Unremarkable. No mass. No consolidation. ABDOMEN: LIVER: Fatty infiltration of the liver. GALLBLADDER AND BILE DUCTS: Unremarkable. No calcified stones. No ductal dilation. PANCREAS: Unremarkable. No ductal dilation. SPLEEN: Unremarkable. No splenomegaly. ADRENALS: Unremarkable. No mass. KIDNEYS AND URETERS: Unremarkable. No obstructing stones. No hydronephrosis. STOMACH AND BOWEL: Fecal retention in the colon consistent with constipation. Colonic diverticulosi s without acute diverticulitis. No obstruction. PELVIS: APPENDIX: No findings to suggest acute appendicitis. BLADDER: Unremarkable. No stones. REPRODUCTIVE: Unremarkable as visualized. ABDOMEN and PELVIS: INTRAPERITONEAL SPACE: Unremarkable. No free air. No significant fluid collection. 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 No acute fracture. No dislocation. SOFT TISSUES: Umbilical hernia containing fat. VASCULATURE: Scattered calcified atherosclerotic disease of aorta. No abdominal aortic aneurysm. LYMPH NODES: Unremarkable. No enlarged lymph nodes. IMPRESSION: 1. Fecal retention in the colon consistent with constipation. 2. Umbilical hernia containing fat. 3. Colonic diverticulosis without acute diverticulitis.
[2024-09-11 10:20] VITALS: PULSE 80; RESP 18; O2SAT 98
[2024-09-11 11:09] LABS: Hematocrit 33.4 % (36.0-46.0); Hemoglobin 11.5 g/dL (12.2-16.2); Mean Corpuscular Hemoglobin 30.2 pg (28.0-32.0); Mean Corpuscular Volume 87.7 fL (80.0-100.0); Nucleated Red Blood Cells % 0.1 %
[2024-09-11] MEDS: methylPREDNISolone SOD SUCC 125 MG/2 ML VL IV ONE (11:16)
[2024-09-11] MEDS: diphenhdrAMINE HCL 50 MG/1 ML VL IV ONE (11:16)
[2024-09-11] MEDS: ONDANSETRON HCL 4 MG/2 ML VIAL IV ONE (11:16)
[2024-09-11 11:23] LABS: Albumin 4.4 g/dL (3.2-4.8); Alkaline Phosphatase 69 U/L (46-116); Anion Gap 12 (5-15); BUN/Creatinine Ratio 8.0 (10.0-20.0); Calcium 9.7 mg/dL (8.7-10.4); Carbon Dioxide 24 mmol/L (20-31); Total Protein 6.8 g/dL (5.7-8.2)
[2024-09-11 11:24] LABS: Bilirubin, Total 0.4 mg/dL (0.2-1.0)
[2024-09-11 11:25] LABS: Alanine Aminotransferase < 9 U/L (7-40); Blood Urea Nitrogen 7 mg/dL (9-23); Chloride 96 mmol/L (98-107); Glucose 107 mg/dL (74-106); INR 1.08 (0.9-1.15); Partial Thromboplastin Time 31.0 SEC (24.5-34.5); Potassium 3.3 mmol/L (3.5-5.1); Prothrombin Time 11.4 sec (9.3-11.8); Sodium 132 mmol/L (136-145)
[2024-09-11] MEDS: TAMSULOSIN HYDROCHLORIDE 0.4 MG CAP PO ONE (12:26)
[2024-09-11 12:29] LABS: Urine Protein, UAD Negative (Negative)
[2024-09-11] MEDS ORDERED: HYDROcodone-ACET 5/325MG TAB PO PRN (13:15)
[2024-09-11] MEDS ORDERED: FAMO-12 PO (13:17)
[2024-09-11] MEDS ORDERED: PHEN32.44 PO (13:17)
[2024-09-11] MEDS ORDERED: GABA-1250 PO (13:17)
[2024-09-11] MEDS: CEFEPIME 1GM/ 50ML 50 ML IV ONE (13:30)
[2024-09-11] MEDS ORDERED: LACTULOSE 20Gm/30ML SOLN PO PRN (13:30)
[2024-09-11] MEDS ORDERED: VANCOMYCIN PER PHARMACY 0 MG IV SCH (13:30)
--- NOTE | 2024-09-11 13:36 | DVHHP2 ---
History of Present Illness Reason for Visit: Wound check History of Present Illness Meghan Salinas is an 83-year-old female with past medical history of hypertension, seizures, GERD, and asthma, who came to the hospital for a wound check. Patient has an abscess to her right labia. She states it started about 2 weeks ago. She tried to manage it at home, but it continued to worsen. She states the pain became too severe and was making it difficult for her to ambulate. 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 GI: GERD Past Surgical History: Hysterectomy, Tonsillectomy Smoke: No ALCOHOL: none Drugs: None Lives: Alone Domestic Violence: Neg Review of Systems Constitutional: No: Fever, Chills, Sweats, Weakness, Malaise, Other Eyes: No: Pain, Vision change, Conjunctivae inflammation, Eyelid inflammation, Other, Redness ENT: No: Ear pain, Ear discharge, Nose pain, Nose discharge, Nose congestion, Mouth pain, Mouth swelling, Throat pain, Throat swelling, Other Respiratory: No: Cough, Dry, Shortness of breath, SOB with excertion, Wheezing, Hemoptysis, Pleuritic Pain, Sputum, Wheezing, Other Cardiovascular: No: Chest Pain, Palpitations, Orthopnea, Paroxysmal Noc. Dyspnea, Edema, Lt Headedness, Other Gastrointestinal: No: Nausea, Vomiting, Abdominal Pain, Diarrhea, Constipation, Melena, Hematochezia, Other Genitourinary: No Dysuria, No Frequency, No Incontinence, No Hematuria, No Retention, No Other Musculoskeletal: No: other, neck pain, shoulder pain, arm pain, back pain, hand pain, leg pain, foot pain Skin: Other (abscess of vulva, pain, redness, purulent drainage); No: Rash, Lesions, Jaundice, Bruising Neurological: No: Weakness, Numbness, Incoordination, Change in speech, Confusion, Seizures, Other Allergies: Coded Allergies: Aspirin (Verified Allergy, Unknown, 10/27/18) Azithromycin (Verified Allergy, Unknown, 10/27/18) Codeine (Verified Allergy, Unknown, 10/27/18) Penicillins (Verified Allergy, Unknown, 10/27/18) Phenytoin (Verified Allergy, Unknown, 10/27/18) Shellfish Allergy (Verified Allergy, Unknown, 10/27/18) Tetracycline (Verified Allergy, Unknown, 10/27/18) Medications Current Medications Medications Dose Ordered Sig/Ayden Route Start Time Stop Time Status Last Admin Dose Admin Sodium Chloride 10 ml Q8HR IV 09/11/24 14:00 UNV Acetaminophen/ Hydrocodone Bitart 1 tab Q4HP PRN PO 09/11/24 13:15 UNV Ondansetron HCl 4 mg Q4HP PRN IV 09/11/24 13:15 UNV Docusate Sodium 100 mg BIDPRN PRN PO 09/11/24 13:15 UNV Acetaminophen 650 mg Q6HP PRN PO 09/11/24 13:15 UNV Morphine Sulfate 2 mg Q4HPRN PRN IV 09/11/24 13:15 UNV Metoprolol Succinate 50 mg DAILY PO 09/12/24 10:00 UNV Patient Own Medication 200 mg TID PO 09/11/24 14:00 UNV Patient Own Medication 750 mg TID PO 09/11/24 14:00 UNV Exam Vital Signs Vital Signs Date Time Temp Pulse Resp B/P (MAP) Pulse Ox O2 Delivery O2 Flow Rate FiO2 09/11/24 12:00 68 12 169/78 (108) 99 09/11/24 10:20 98.4 98.4 09/11/24 10:20 Room Air* 0 21 General Appearance: Alert, Oriented X3, Cooperative, mild distress HEENT: Atraumatic, PERRLA Respiratory: Clear to auscultation, Normal air movement Cardiovascular: Regular rate, Normal S1, Normal S2, No murmurs Abdominal: Normal bowel sounds, Soft, No tenderness Extremities: No clubbing, No cyanosis, No edema, Normal pulses Skin: No rashes, No significant lesion (abscess of vulva, pain, redness, purulent drainage) Neuro: Normal gait, Normal speech, Strength at 5/5 X4 ext, Normal tone Psych/Mental Status: Mental status NL, Mood NL Labs/Xrays Labs Test 09/11/24 10:33 09/11/24 09:35 09/11/24 09:21 Range/Units White Blood Count 5.5 4.4-10.8 10^3/uL Red Blood Count 3.81 L 4.0-5.20 10^6/uL Hemoglobin 11.5 L 12.2-16.2 g/dL Hematocrit 33.4 L 36.0-46.0 % Mean Corpuscular Volume 87.7 80.0-100.0 fL Mean Corpuscular Hemoglobin 30.2 28.0-32.0 pg Mean Corpuscular Hemoglobin Concent 34.4 32.0-36.0 g/dL Red Cell Distribution Width 13.4 11.8-14.3 % Platelet Count 262 140-450 10^3/uL Mean Platelet Volume 6.7 L 6.9-10.8 fL Neutrophils (%) (Auto) 57.8 37.0-80.0 % Lymphocytes (%) (Auto) 24.8 10.0-50.0 % Monocytes (%) (Auto) 15.6 H 0.0-12.0 % Eosinophils (%) (Auto) 1.3 0.0-7.0 % Basophils (%) (Auto) 0.5 0.0-2.0 % Neutrophils # (Auto) 3.2 1.6-8.6 10 ^3/uL Lymphocytes # (Auto) 1.4 0.4-5.4 10 ^3/uL Monocytes # (Auto) 0.9 0-1.3 10 ^3/uL Eosinophils # (Auto) 0.1 0-0.8 10 ^3/uL Basophils # (Auto) 0 0-0.2 10 ^3/uL Nucleated Red Blood Cells 0.1 % Prothrombin Time 11.4 9.3-11.8 sec Prothrombin Time INR 1.08 0.9-1.15 Activated Partial Thromboplast Time 31.0 24.5-34.5 SEC Sodium Level 132 L 136-145 mmol/L Potassium Level 3.3 L 3.5-5.1 mmol/L Chloride Level 96 L 98-107 mmol/L Carbon Dioxide Level 24 20-31 mmol/L Anion Gap 12 5-15 Blood Urea Nitrogen 7 L 9-23 mg/dL Creatinine 0.88 0.550-1.02 mg/dL Glomerular Filtration Rate Calc 66 >90 mL/min BUN/Creatinine Ratio 8.0 L 10.0-20.0 Serum Glucose 107 H 74-106 mg/dL Lactic Acid Level 1.7 0.4-2.0 mmol/L Calcium Level 9.7 8.7-10.4 mg/dL Total Bilirubin 0.4 0.2-1.0 mg/dL Aspartate Amino Transferase (AST) 19 13-40 U/L Alanine Aminotransferase (ALT) < 9 7-40 U/L Alkaline Phosphatase 69 46-116 U/L Total Protein 6.8 5.7-8.2 g/dL Albumin 4.4 3.2-4.8 g/dL Urine Color Colorless Yellow Urine Clarity Clear Clear Urine pH 7.0 5.0-9.0 Urine Specific [place] 1.004 1.001-1.035 Urine Protein Negative Negative Urine Ketones Negative Negative Urine Blood Trace H Negative /uL Urine Nitrite Negative Negative Urine Bilirubin Negative Negative Urine Urobilinogen Normal Negative mg/dL Urine Leukocyte Esterase Negative Negative /uL Urine RBC <1 0 - 4 /hpf Urine Microscopic WBC 1 0-5 /HPF Urine Squamous Epithelial Cells Few <5 /hpf Urine Bacteria None seen None Seen /hpf Urine Glucose Normal Normal mg/dL POC Glucose 120 H 70-106 mg/dl EXAM: CT Abdomen and Pelvis Without Intravenous Contrast FINDINGS: LUNG BASES: Unremarkable. No mass. No consolidation. ABDOMEN: LIVER: Fatty infiltration of the liver. GALLBLADDER AND BILE DUCTS: Unremarkable. No calcified stones. No ductal d ilation. PANCREAS: Unremarkable. No ductal dilation. SPLEEN: Unremarkable. No splenomegaly. ADRENALS: Unremarkable. No mass. KIDNEYS AND URETERS: Unremarkable. No obstructing stones. No hydronephrosis. STOMACH AND BOWEL: Fecal retention in the colon consistent with constipation. Colonic diverticulosis without acute diverticulitis. No obstruction. PELVIS: APPENDIX: No findings to suggest acute appendicitis. BLADDER: Unremarkable. No stones. REPRODUCTIVE: Unremarkable as visualized. ABDOMEN and PELVIS: INTRAPERITONEAL SPACE: Unremarkable. No free air. No significant fluid collection. 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 No acute fracture. No dislocation. SOFT TISSUES: Umbilical hernia containing fat. VASCULATURE: Scattered calcified atherosclerotic disease of aorta. No abdominal aortic aneurysm. LYMPH NODES: Unremarkable. No enlarged lymph nodes. IMPRESSION: 1. Fecal retention in the colon consistent with constipation. 2. Umbilical hernia containing fat. 3. Colonic diverticulosis without acute diverticulitis. EXAM: XR Chest, 1 View FINDINGS: LUNGS AND PLEURAL SPACES: Right basilar atelectasis or pneumonia. Pulmonary venous congestion. No pneumothorax. HEART: Unremarkable. No cardiomegaly. MEDIASTINUM: Unremarkable. Normal mediastinal contour. BONES/JOINTS: Unremarkable. No acute fracture. IMPRESSION: 1. Right basilar atelectasis or pneumonia. 2. Pulmonary venous congestion. Assessment/Plan Assessment/Plan Assessment: Abscess, vulva, Hypokalemia, Constipation, Hypertension, Seizures, GERD, Plan: Admit to Med-Surg, Surgical consult, IV antibiotics, IV hydration, EKG, ECHO, Seizure precautions, Manage/Monitor electrolytes closely, Consider cardiology consult if needed for surgical clearance, Home medications reconciled, Plan discussed with: Patient My Orders Orders - LAI JORDAN Procedure Category Date Status Time Admit ADMIT 09/11/24 Transmitted 13:01 Code Status CODE 09/11/24 Transmitted 13:01 2 Gm Sodium Diet DIET 09/11/24 Transmitted Lunch Sodium Chloride Lock PHA 09/11/24 Logged (Saline Lock Ns) 14:00 Hydrocodone-Acet PHA 09/11/24 Logged 5/325mg Tab ([place] 13:15 Ondansetron Hcl PHA 09/11/24 Logged (Zofran) 13:15 Docusate Sodium PHA 09/11/24 Logged Capsule (Colace 13:15 Fall Risk Precautions VERONICA 09/11/[address] 13:01 Complete Blood Count LAB 09/12/24 Verified 04:00 Comprehensive LAB 09/12/24 Verified Metabolic Panel 04:00 Echo 2d Mode Cardiac US 09/11/24 Logged DOP 13:01 Condition: Serious VERONICA 09/11/24 In Process 13:01 Acetaminophen Tablet PHA 09/11/24 Logged (Tylenol Tablet) 13:15 Morphine Sulfate PHA 09/11/24 Logged Injection 13:15 Metoprolol Xl PHA 09/12/24 Logged Succinate (Toprol Xl) 10:00 (Nf) Carbamazepine PHA 09/11/24 Logged 14:00 (Nf) Methocarbamol PHA 09/11/24 Logged 14:00 * Surgical Consult CONS 09/11/24 Transmitted Electrocardigram EKG 09/11/24 Transmitted 13:17 Date of Service: Sep 11, 2024 Billing Provider: LAI JORDAN Common Visit Codes: [id number] INP/OBS CARE (MOD) LAI JORDAN Sep 11, 2024 13:36
[2024-09-11] MEDS: POTASSIUM EFFERVESENT TAB 25 MEQ PO ONE (13:41)
[2024-09-11] MEDS ORDERED: METOPROLOL SUCCINATE XL 50 MG TAB PO SCH (14:00)
[2024-09-11] MEDS ORDERED: METHOCARBAMOL 500 MG TAB PO SCH (14:00)
[2024-09-11] MEDS ORDERED: CEFEPIME 1GM/ 50ML 50 ML IV SCH (14:00)
[2024-09-11] MEDS: SODIUM CHLOR 0.9% PF (SALINE LOCK) 10ML VIAL/SYR IV SCH (15:17)
[2024-09-11] MEDS: carBAMazepine 200 MG TAB PO SCH (15:17)
[2024-09-11 15:53] VITALS: BP 143/71; PULSE 79; RESP 16; RESP 18; TEMP 98; O2SAT 96; O2SAT 97
[2024-09-11] MEDS: VANCOMYCIN 1.5GM/300ML 300 ML IV ONE (16:57)
[2024-09-11 20:00] VITALS: PULSE 73; PULSE 85; RESP 16; O2SAT 98
[2024-09-11 21:00] VITALS: BP 148/87; PULSE 93; RESP 17; TEMP 97.7; O2SAT 99
[2024-09-11] MEDS: FAMOTIDINE 20 MG TAB PO SCH (21:58)
[2024-09-11] MEDS: GABAPENTIN 300 MG CAP PO SCH (22:00)
[2024-09-11] MEDS: diphenhdrAMINE HCL 50 MG/1 ML VL IV PRN (22:16)
[2024-09-11] MEDS: CEFEPIME 1GM/ 50ML 50 ML IV SCH (22:22)
[2024-09-12] VITALS (7 sets, daily range): BP systolic 95–161; BP diastolic 48–86; PULSE 61–89; RESP 16–18; TEMP 97.3–98.3; O2SAT 93–100
[2024-09-12] MEDS: MORPHINE SULFATE INJ 2 MG/ml SYRG IV PRN (04:25)
[2024-09-12] MEDS: ONDANSETRON HCL 4 MG/2 ML VIAL IV PRN (04:27)
--- NOTE | 2024-09-12 06:37 | DVHSR ---
APPROVED REPORT EXAM: Two-dimensional and M-mode echocardiogram with Doppler and color Doppler. Blood Pressure: 169/78 mmHg INDICATION cardiac clearance, lv function RISK FACTORS Obesity: Height: 5'1, Weight: 260 DIMENSIONS LVDd4.2 (3.8-5.7cm)LA (2D)2.9 (1.9-4.0cm)Aortic Root3.1 (2.0-3.7cm) LVDs3.0 (2.5-4.0cm)LA (MM) (1.9-4.0cm)Aortic Cusp Exc1.1 (1.5-2.0cm) EF (%) 55.0 (55-70%)Rt. Atrium3.4 (1.9-4.0cm)Asc. Aorta cm IVSd0.9 (0.7-1.1cm)RV (D)3.2 (1.8-2.4cm) PWd1.0 (0.7-1.1cm) Mitral Valve MitralMitral Stenosis E wave0.87m/sMV Mean GR.mmHg A wave1.06m/sMV Peak GR.90mmHg E/A ratio0.82D MVAcm2 DECEL [id number] 1/2 Timems Aortic Valve Aortic ValveAortic Stenosis V11.11m/Tello Mean GR.8mmHg V21.90m/Tello Peak GR.14mmHg LVOT Diameter2.0 (1.8-2.4cm)Doppler AVA1.83cm2 AI P 1/2 Yhrz400.62ms Pulmonic Valve V21.00m/s Tricuspid Valve TR Velocity2.18m/s [id number] Other Information Technically limited study due to pt talking entire exam. Conclusion lvef 55% mild LVH normal rv function no severe valve abnormalities noted mild to moderate aortic regurg noted
[2024-09-12 07:16] LABS: Hematocrit 31.6 % (36.0-46.0); Hemoglobin 11.0 g/dL (12.2-16.2); Mean Corpuscular Hemoglobin 30.1 pg (28.0-32.0); Mean Corpuscular Volume 86.9 fL (80.0-100.0); Nucleated Red Blood Cells % 0.1 %
[2024-09-12 07:36] LABS: Albumin 4.2 g/dL (3.2-4.8); Alkaline Phosphatase 63 U/L (46-116); Anion Gap 12 (5-15); BUN/Creatinine Ratio 11.8 (10.0-20.0); Blood Urea Nitrogen 12 mg/dL (9-23); Calcium 9.5 mg/dL (8.7-10.4); Carbon Dioxide 25 mmol/L (20-31); Glucose 105 mg/dL (74-106); Magnesium 2.3 mg/dL (1.6-2.6); Total Protein 6.5 g/dL (5.7-8.2)
[2024-09-12 07:37] LABS: Alanine Aminotransferase < 9 U/L (7-40); Bilirubin, Total 0.3 mg/dL (0.2-1.0); Chloride 98 mmol/L (98-107); Potassium 3.2 mmol/L (3.5-5.1); Sodium 135 mmol/L (136-145)
--- NOTE | 2024-09-12 13:42 | DVHPN2 ---
Subjective The patient seen and examined at bedside. Still complain of pain in her vulva area. Reviewed: Care Plan, H&P, Labs, Medications, Previous Orders, Radiology Changes from previous H/P or p: No Changes Eyes: No Pain, No Vision change, No Conjunctivae inflammation, No Eyelid inflammation, No Other, No Redness ENT: No Ear pain, No Ear discharge, No Nose pain, No Nose discharge, No Nose congestion, No Mouth pain, No Mouth swelling, No Throat pain, No Throat swelling, No Other Cardiovascular: No Chest Pain, No Palpitations, No Orthopnea, No Paroxysmal Noc. Dyspnea, No Edema, No Lt Headedness, No Other Respiratory: No Cough, No Dry, No Shortness of breath, No SOB with excertion, No Wheezing, No Hemoptysis, No Pleuritic Pain, No Sputum, No Other Gastrointestinal: No Nausea, No Vomiting, No Abdominal Pain, No Diarrhea, No Constipation, No Melena, No Hematochezia, No Other Genitourinary: No Dysuria, No Frequency, No Incontinence, No Hematuria, No Retention, No Other Musculoskeletal: No other, No neck pain, No shoulder pain, No arm pain, No back pain, No hand pain, No leg pain, No foot pain Skin: No Rash, No Lesions, No Jaundice, No Bruising; Other (abscess of vulva, pain, redness, purulent drainage) Objective Vitals Vital Signs Date Time Temp Pulse Resp B/P (MAP) Pulse Ox O2 Delivery O2 Flow Rate FiO2 09/12/24 08:53 97.3 70 16 137/73 (94) 100 97.3 09/12/24 08:00 Room Air* 0 21 Intake/Output Intake and Output 09/12/24 07:00 Intake Total 1200 ml Balance 1200 ml Intake Oral 600 ml IV Total 600 ml # Voids 1 General Appearance: Alert, Oriented X3, Cooperative, No acute distress HEENT: Atraumatic, PERRLA, EOMI, Mucous membr. moist/pink Neck: Supple Lungs: Clear to auscultation, Normal air movement Cardiovascular: Regular rate, Normal S1, Normal S2, No murmurs, Gallops, Rubs Abdomen: Normal bowel sounds, Soft, No tenderness BOOM MAN: Other (abcess in vulva area.) Neuro: Cranial nerves 3-12 NL Psych/Mental Status: Mental status NL Medications Current Medications Medications Dose Ordered Sig/Ayden Route Start Time Stop Time Status Last Admin Dose Admin Sodium Chloride 10 ml Q8HR IV 09/11/24 14:00 09/12/24 06:41 10 ML Acetaminophen/ Hydrocodone Bitart 1 tab Q4HP PRN PO 09/11/24 13:15 Ondansetron HCl 4 mg Q4HP PRN IV 09/11/24 13:15 09/12/24 04:27 4 MG Docusate Sodium 100 mg BIDPRN PRN PO 09/11/24 13:15 Acetaminophen 650 mg Q6HP PRN PO 09/11/24 13:15 Morphine Sulfate 2 mg Q4HPRN PRN IV 09/11/24 13:15 09/12/24 04:25 2 MG Metoprolol Succinate 50 mg DAILY PO 09/11/24 14:00 Hold Carbamazepine 200 mg TID PO 09/11/24 14:00 09/12/24 06:41 200 MG Methocarbamol 750 mg TID PO 09/11/24 14:00 Hold Vancomycin HCl 0 ml @ 0 mls/hr UD IV 09/11/24 13:30 Cefepime HCl 50 ml @ 12.5 mls/hr Q12HR IV 09/11/24 22:00 09/12/24 09:33 12.5 MLS/HR Lactulose 30 ml BIDPRN PRN PO 09/11/24 13:30 Famotidine 20 mg BID PO 09/11/24 22:00 09/12/24 09:33 20 MG Gabapentin 600 mg BID PO 09/11/24 22:00 Phenobarbital 64.8 mg TID PO 09/11/24 22:00 09/12/24 06:41 64.8 MG Vancomycin HCl 300 ml @ 200 mls/hr DAILY@1700 IV 09/12/24 17:00 Cancel Diphenhydramine HCl 25 mg Q4HP PRN IV 09/11/24 19:15 09/12/24 09:33 25 MG Laboratory Results Laboratory Tests 09/12/24 06:43 Chemistry Test 09/12/24 06:43 Albumin 4.2 g/dL (3.2-4.8) Calcium Level 9.5 mg/dL (8.7-10.4) Magnesium Level 2.3 mg/dL (1.6-2.6) Total Protein 6.5 g/dL (5.7-8.2) LFT Test 09/12/24 06:43 Alanine Aminotransferase (ALT) < 9 U/L (7-40) Alkaline Phosphatase 63 U/L (46-116) Aspartate Amino Transferase (AST) 19 U/L (13-40) Total Bilirubin 0.3 mg/dL (0.2-1.0) Urinalysis Test 09/11/24 09:35 Urine Color Colorless (Yellow) Urine Clarity Clear (Clear) Urine pH 7.0 (5.0-9.0) Urine Specific [place] 1.004 (1.001-1.035) Urine Protein Negative (Negative) Urine Ketones Negative (Negative) Urine Blood Trace /uL (Negative) H Urine Nitrite Negative (Negative) Urine Bilirubin Negative (Negative) Urine Urobilinogen Normal mg/dL (Negative) Urine Leukocyte Esterase Negative /uL (Negative) Urine RBC <1 /hpf (0 - 4) Urine Microscopic WBC 1 /HPF (0-5) Urine Squamous Epithelial Cells Few /hpf (<5) Urine Bacteria None seen /hpf (None Seen) Urine Glucose Normal mg/dL (Normal) Microbiology Microbiology Date/Time Source Procedure Growth Status 09/11/24 10:33 Blood Blood Culture - Preliminary NO GROWTH AFTER 24 HOURS OF INCUBATION. Resulted Labs and/or images reviewed: Labs reviewed by me Assessment/Plan Assessment/Plan Abscess, vulva, Hypokalemia, Constipation, Hypertension, Seizures, GERD, Continuing current management. Continuing with IV antibiotic. Continuing with seizure medication and hypertensive medication. Replace electrolytes as needed. Continuing Colace for constipation. Waiting for surgeon to see the patient. This medical document was created using an electronic medical record system with [employer] direct computerized dictation system. Although this document has been carefully reviewed, there may still be some phonetic and typographical errors. These areas are purely typographical due to imperfections of the software programs, and do not reflect any compromise in the patient's medical care. Plan discussed with: Patient Date of Service: Sep 12, 2024 Billing Provider: FRED STUART MD Common Visit Codes: [id number] INP/OBS CARE(HIGH) FRED STUART MD Sep 12, 2024 13:42
[2024-09-12] MEDS ORDERED: VANCOMYCIN 1.5GM/300ML 300 ML IV SCH (17:00)
--- NOTE | 2024-09-12 17:08 | CONS ---
Pharmacy Clinical Information: VANCO D/C'D DUE TO PATIENT ALLERGIC REACTION PATIENT CURRENTLY ON CEFEPIME RECOMMEND ADDITION OF CLINDAMYCIN FOR ANAEROBIC COVERAGE. WOULD ALSO COVER MRSA IF NEEDED. TEGAN ZAZUETA PHARMACIST Sep 12, 2024 17:08
[2024-09-12] MEDS: DOCUSATE SOD 100 MG CAP PO PRN (21:35)
[2024-09-12] MEDS: GABAPENTIN 300 MG CAP PO SCH (21:35)
[2024-09-13 01:00] VITALS: BP 123/71; PULSE 70; RESP 16; TEMP 98.1; O2SAT 98
[2024-09-13 05:00] VITALS: BP 125/72; PULSE 66; RESP 17; TEMP 98.1; O2SAT 97
[2024-09-13 09:00] VITALS: BP 126/63; PULSE 66; RESP 18; TEMP 98.1; O2SAT 98
[2024-09-13] MEDS: FAMOTIDINE 20 MG TAB PO SCH (10:19)
[2024-09-13 13:00] VITALS: BP 124/58; PULSE 73; RESP 18; TEMP 98.2; O2SAT 99
--- NOTE | 2024-09-13 13:45 | DVHPN2 ---
Subjective The patient is seen and examined at bedside. Still complain of pain in her vulvar area. Reviewed: Care Plan, H&P, Labs, Medications, Previous Orders, Radiology Changes from previous H/P or p: No Changes Eyes: No Pain, No Vision change, No Conjunctivae inflammation, No Eyelid inflammation, No Other, No Redness ENT: No Ear pain, No Ear discharge, No Nose pain, No Nose discharge, No Nose congestion, No Mouth pain, No Mouth swelling, No Throat pain, No Throat swelling, No Other Cardiovascular: No Chest Pain, No Palpitations, No Orthopnea, No Paroxysmal Noc. Dyspnea, No Edema, No Lt Headedness, No Other Respiratory: No Cough, No Dry, No Shortness of breath, No SOB with excertion, No Wheezing, No Hemoptysis, No Pleuritic Pain, No Sputum, No Other Gastrointestinal: No Nausea, No Vomiting, No Abdominal Pain, No Diarrhea, No Constipation, No Melena, No Hematochezia, No Other Genitourinary: No Dysuria, No Frequency, No Incontinence, No Hematuria, No Retention, No Other Musculoskeletal: No other, No neck pain, No shoulder pain, No arm pain, No back pain, No hand pain, No leg pain, No foot pain Skin: No Rash, No Lesions, No Jaundice, No Bruising; Other (abscess of vulva, pain, redness, purulent drainage) Objective Vitals Vital Signs Date Time Temp Pulse Resp B/P (MAP) Pulse Ox O2 Delivery O2 Flow Rate FiO2 09/13/24 09:00 98.1 66 18 126/63 (84) 98 98.1 09/13/24 08:00 Room Air* 0 21 Intake/Output Intake and Output 09/13/24 06:59 Intake Total 1440 ml Balance 1440 ml Intake Oral 1340 ml IV Total 100 ml # Voids 1 General Appearance: Alert, Oriented X3, Cooperative, No acute distress HEENT: Atraumatic, PERRLA, EOMI, Mucous membr. 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 Neuro: Cranial nerves 3-12 NL Psych/Mental Status: Mental status NL Medications Current Medications Medications Dose Ordered Sig/Ayden Route Start Time Stop Time Status Last Admin Dose Admin Sodium Chloride 10 ml Q8HR IV 09/11/24 14:00 09/13/24 05:27 10 ML Acetaminophen/ Hydrocodone Bitart 1 tab Q4HP PRN PO 09/11/24 13:15 Ondansetron HCl 4 mg Q4HP PRN IV 09/11/24 13:15 09/12/24 04:27 4 MG Docusate Sodium 100 mg BIDPRN PRN PO 09/11/24 13:15 09/12/24 21:35 100 MG Acetaminophen 650 mg Q6HP PRN PO 09/11/24 13:15 Morphine Sulfate 2 mg Q4HPRN PRN IV 09/11/24 13:15 09/12/24 04:25 2 MG Metoprolol Succinate 50 mg DAILY PO 09/11/24 14:00 Hold Carbamazepine 200 mg TID PO 09/11/24 14:00 09/13/24 05:27 200 MG Methocarbamol 750 mg TID PO 09/11/24 14:00 Hold Cefepime HCl 50 ml @ 12.5 mls/hr Q12HR IV 09/11/24 22:00 09/13/24 10:20 12.5 MLS/HR Lactulose 30 ml BIDPRN PRN PO 09/11/24 13:30 Phenobarbital 64.8 mg TID PO 09/11/24 22:00 09/13/24 05:27 64.8 MG Vancomycin HCl 300 ml @ 200 mls/hr DAILY@1700 IV 09/12/24 17:00 Cancel Diphenhydramine HCl 25 mg Q4HP PRN IV 09/11/24 19:15 09/12/24 21:35 25 MG Famotidine 20 mg DAILY PO 09/13/24 10:00 09/13/24 10:19 20 MG Gabapentin 300 mg TID PO 09/12/24 22:00 Laboratory Results Laboratory Tests 09/12/24 06:43 Urinalysis Test 09/11/24 09:35 Urine Color Colorless (Yellow) Urine Clarity Clear (Clear) Urine pH 7.0 (5.0-9.0) Urine Specific [place] 1.004 (1.001-1.035) Urine Protein Negative (Negative) Urine Ketones Negative (Negative) Urine Blood Trace /uL (Negative) H Urine Nitrite Negative (Negative) Urine Bilirubin Negative (Negative) Urine Urobilinogen Normal mg/dL (Negative) Urine Leukocyte Esterase Negative /uL (Negative) Urine RBC <1 /hpf (0 - 4) Urine Microscopic WBC 1 /HPF (0-5) Urine Squamous Epithelial Cells Few /hpf (<5) Urine Bacteria None seen /hpf (None Seen) Urine Glucose Normal mg/dL (Normal) Microbiology Microbiology Date/Time Source Procedure Growth Status 09/11/24 10:33 Blood Blood Culture - Preliminary NO GROWTH AFTER 48 HOURS OF INCUBATION. Resulted Labs and/or images reviewed: Labs reviewed by me Assessment/Plan Assessment/Plan Abscess, vulva, Hypokalemia, Constipation, Hypertension, Seizures, GERD, Continuing current management. Continuing with IV antibiotic. Continuing with seizure medication and hypertensive medication. Replace electrolytes as needed. Continuing Colace for constipation. Waiting for surgeon to see the patient. This medical document was created using an electronic medical record system with [employer] direct computerized dictation system. Although this document has been carefully reviewed, there may still be some phonetic and typographical errors. These areas are purely typographical due to imperfections of the software programs, and do not reflect any compromise in the patient's medical care. Plan discussed with: Patient Date of Service: Sep 13, 2024 Billing Provider: FRED STUART MD Common Visit Codes: [id number] INP/OBS CARE(HIGH) FRED STUART MD Sep 13, 2024 13:45
[2024-09-13 17:00] VITALS: BP 138/55; PULSE 70; RESP 18; TEMP 97.9; O2SAT 98
[2024-09-14 01:00] VITALS: BP 124/53; PULSE 67; RESP 16; TEMP 98.6; O2SAT 98
[2024-09-14 05:00] VITALS: BP 119/98; PULSE 64; RESP 18; TEMP 98; O2SAT 98
[2024-09-14 08:30] VITALS: BP 111/55; PULSE 63; RESP 18; TEMP 98; O2SAT 99
[2024-09-14] MEDS: ACETAMINOPHEN 325 MG TAB PO PRN (09:19)
[2024-09-14 10:13] LABS: Hepatitis B Surface Antigen Negative (Negative)
[2024-09-14 10:35] LABS: Hepatitis C Antibody Negative (Negative)
--- NOTE | 2024-09-14 12:23 | DVHPN2 ---
Subjective The patient is seen and examined at bedside. No complaint today however still have pain in the vulva area. Reviewed: Care Plan, H&P, Labs, Medications, Previous Orders, Radiology Changes from previous H/P or p: No Changes Eyes: No Pain, No Vision change, No Conjunctivae inflammation, No Eyelid inflammation, No Other, No Redness ENT: No Ear pain, No Ear discharge, No Nose pain, No Nose discharge, No Nose congestion, No Mouth pain, No Mouth swelling, No Throat pain, No Throat swelling, No Other Cardiovascular: No Chest Pain, No Palpitations, No Orthopnea, No Paroxysmal Noc. Dyspnea, No Edema, No Lt Headedness, No Other Respiratory: No Cough, No Dry, No Shortness of breath, No SOB with excertion, No Wheezing, No Hemoptysis, No Pleuritic Pain, No Sputum, No Other Gastrointestinal: No Nausea, No Vomiting, No Abdominal Pain, No Diarrhea, No Constipation, No Melena, No Hematochezia, No Other Genitourinary: No Dysuria, No Frequency, No Incontinence, No Hematuria, No Retention, No Other Musculoskeletal: No other, No neck pain, No shoulder pain, No arm pain, No back pain, No hand pain, No leg pain, No foot pain Skin: No Rash, No Lesions, No Jaundice, No Bruising; Other (abscess of vulva, pain, redness, purulent drainage) Objective Vitals Vital Signs Date Time Temp Pulse Resp B/P (MAP) Pulse Ox O2 Delivery O2 Flow Rate FiO2 09/14/24 08:30 98.0 63 18 111/55 (73) 99 98.0 09/14/24 08:05 Room Air* 0 21 Intake/Output Intake and Output 09/14/24 07:00 Intake Total 1050 ml Balance 1050 ml Intake Oral 1000 ml IV Total 50 ml # Voids 3 # Bowel Movements 1 General Appearance: Alert, Oriented X3, Cooperative, No acute distress HEENT: Atraumatic, PERRLA, EOMI, Mucous membr. 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) Neuro: Cranial nerves 3-12 NL Psych/Mental Status: Mental status NL Medications Current Medications Medications Dose Ordered Sig/Ayden Route Start Time Stop Time Status Last Admin Dose Admin Sodium Chloride 10 ml Q8HR IV 09/11/24 14:00 09/14/24 05:18 10 ML Acetaminophen/ Hydrocodone Bitart 1 tab Q4HP PRN PO 09/11/24 13:15 Ondansetron HCl 4 mg Q4HP PRN IV 09/11/24 13:15 09/12/24 04:27 4 MG Docusate Sodium 100 mg BIDPRN PRN PO 09/11/24 13:15 09/13/24 21:55 100 MG Acetaminophen 650 mg Q6HP PRN PO 09/11/24 13:15 09/14/24 09:19 650 MG Morphine Sulfate 2 mg Q4HPRN PRN IV 09/11/24 13:15 09/12/24 04:25 2 MG Metoprolol Succinate 50 mg DAILY PO 09/11/24 14:00 Hold Carbamazepine 200 mg TID PO 09/11/24 14:00 09/14/24 05:18 200 MG Methocarbamol 750 mg TID PO 09/11/24 14:00 Hold Cefepime HCl 50 ml @ 12.5 mls/hr Q12HR IV 09/11/24 22:00 09/14/24 09:20 12.5 MLS/HR Lactulose 30 ml BIDPRN PRN PO 09/11/24 13:30 Phenobarbital 64.8 mg TID PO 09/11/24 22:00 09/14/24 05:18 64.8 MG Vancomycin HCl 300 ml @ 200 mls/hr DAILY@1700 IV 09/12/24 17:00 Cancel Diphenhydramine HCl 25 mg Q4HP PRN IV 09/11/24 19:15 09/14/24 09:18 25 MG Famotidine 20 mg DAILY PO 09/13/24 10:00 09/14/24 09:19 20 MG Gabapentin 300 mg TID PO 09/12/24 22:00 Laboratory Results Laboratory Tests 09/12/24 06:43 Urinalysis Test 09/11/24 09:35 Urine Color Colorless (Yellow) Urine Clarity Clear (Clear) Urine pH 7.0 (5.0-9.0) Urine Specific [place] 1.004 (1.001-1.035) Urine Protein Negative (Negative) Urine Ketones Negative (Negative) Urine Blood Trace /uL (Negative) H Urine Nitrite Negative (Negative) Urine Bilirubin Negative (Negative) Urine Urobilinogen Normal mg/dL (Negative) Urine Leukocyte Esterase Negative /uL (Negative) Urine RBC <1 /hpf (0 - 4) Urine Microscopic WBC 1 /HPF (0-5) Urine Squamous Epithelial Cells Few /hpf (<5) Urine Bacteria None seen /hpf (None Seen) Urine Glucose Normal mg/dL (Normal) Microbiology Microbiology Date/Time Source Procedure Growth Status 09/11/24 10:33 Blood Blood Culture - Preliminary NO GROWTH AFTER 72 HOURS OF INCUBATION. Resulted Labs and/or images reviewed: Labs reviewed by me Assessment/Plan Assessment/Plan Abscess, vulva, Hypokalemia, Constipation, Hypertension, Seizures, GERD, Continuing current management. Continuing with IV antibiotic. Continuing with seizure medication and hypertensive medication. Replace electrolytes as needed. Continuing Colace for constipation. Per surgeon he did not do the I and D procedure of the vulvar. We will consulted OBGYN. This medical document was created using an electronic medical record system with [employer] direct computerized dictation system. Although this document has been carefully reviewed, there may still be some phonetic and typographical errors. These areas are purely typographical due to imperfections of the software programs, and do not reflect any compromise in the patient's medical care. Plan discussed with: Patient My Orders Orders - FRED STUART MD Procedure Category Date Status Time * [place] Consultation CONS 09/14/24 Transmitted 11:26 Date of Service: Sep 14, 2024 Billing Provider: FRED STUART MD Common Visit Codes: [id number] INP/OBS CARE(HIGH) FRED STUART MD Sep 14, 2024 12:23
[2024-09-14 12:31] VITALS: BP 112/63; PULSE 69; RESP 17; TEMP 98.1; O2SAT 97
[2024-09-14 17:10] VITALS: BP 130/65; PULSE 69; RESP 18; TEMP 98.1; O2SAT 99
[2024-09-14 21:00] VITALS: BP 147/78; PULSE 71; RESP 19; TEMP 97.5; O2SAT 97
--- NOTE | 2024-09-14 23:53 | DVHINCON2 ---
Date of service: Sep 14, 2024 Referring Physician Hospitalist Reason for Consultation Right vulvar abscess History of Present Illness Patient has been in hospital 3+ days on IV antibiotics she has been having vaginal pain and swelling for weeks. Past Medical History Hypertension seizure disorder GERD asthma Past Surgical History Tonsils and adenoidectomy hysterectomy without complication Social History Denies smoking alcohol or drugs Patient Family History: Patient reports no known family medical history. Allergies: Coded Allergies: Vancomycin (Verified Allergy, Intermediate, 09/11/24) Redness adn itchness Aspirin (Verified Allergy, Unknown, 10/27/18) Azithromycin (Verified Allergy, Unknown, 10/27/18) Codeine (Verified Allergy, Unknown, 10/27/18) Penicillins (Verified Allergy, Unknown, 10/27/18) Phenytoin (Verified Allergy, Unknown, 10/27/18) Shellfish Allergy (Verified Allergy, Unknown, 10/27/18) Tetracycline (Verified Allergy, Unknown, 10/27/18) Home Meds Reported Medications Gabapentin (Gabapentin) 300 Mg Cap, 2 CAP PO BID 09/11/24 Famotidine (Famotidine) 20 Mg Tab, 1 TAB PO BID 09/11/24 Phenobarbital (PHENOBARBITAL) 32.4 Mg Tb, 64.8 MG PO TID, TAB 09/11/24 Metoprolol Succinate (Metoprolol Succinate Er) 50 Mg Tab, 50 MG PO DAILY for 30 Days, MG 10/27/18 Methocarbamol (Methocarbamol) 750 Mg Tab, 750 MG PO TID for 30 Days, MG 10/27/18 Carbamazepine (Carbamazepine) 100 Mg Chw, 200 MG PO TID for 30 Days, MG 10/27/18 Discontinued Reported Medications Omeprazole (Gnp Omeprazole) 20 Mg Tab, 20 MG PO BID, TAB 10/27/18 Diphenoxylate W/ Atropine (Diphenoxylate Hydrochlori 2.5-0.025 mg) 1 Tab Tab, 1 TAB PO 6XD, TAB 10/27/18 Phenobarbital (PHENOBARBITAL) 32.4 Mg Tb, 32.4 MG PO TID 10/27/18 Benzonatate (Benzonatate) 100 Mg Cap, 1 CAP PO BID, #30 CAP 10/27/18 Promethazine Hcl (Promethazine Hcl) 25 Mg Tab, 25 MG PO ONCE 10/27/18 Discontinued Scripts Levofloxacin Hemihydrate (LEVOFLOXACIN) 500 Mg Tab, 500 MG PO DAILY for 4 Days, #4 TAB Prov:KATHRYN LEON MD 10/31/18 Review of Systems Constitutional: no fever, chill, weight loss HEENT: no eye pain, no hearing loss, no oral lesion, no scleral icterus Heart: no chest pain, no chest pressure Lung: no cough, no dyspnea with exertion Abdomen: see HPI : no pain with urination, normal appearing urine Musculoskeletal: no joint pain, no muscle pain Neurological: no seizure, no loss of sensation, no weakness in extremities Pysch: no depression, no anxiety Derm: no rash, no jaundice Vital Signs Vital Signs Date Time Temp Pulse Resp B/P (MAP) Pulse Ox O2 Delivery O2 Flow Rate FiO2 09/14/24 21:00 97.5 71 19 147/78 (101) 97 97.5 09/14/24 08:05 Room Air* 0 21 Physical Exam SKIN: Normal dry HEENT: Normal NECK: Normal CARDIAC: Deferred to hospitalist PULMONARY: Defer to hospitalist ABDOMEN: Soft positive bowel sounds MUSCULOSKELETAL: Normal-appearing although she is lying in bed NEURO: Alert awake oriented x3 Pelvic exam right vulva labia majora minora red swollen open pus draining severely tender Labs/Diagnostic Data Labs Test 09/14/24 16:05 09/12/24 06:43 09/11/24 10:33 09/11/24 09:35 Range/Units Vancomycin Level Trough 3.4 L 5-10 ug/mL White Blood Count 6.0 4.4-10.8 10^3/uL Red Blood Count 3.64 L 4.0-5.20 10^6/uL Hemoglobin 11.0 L 12.2-16.2 g/dL Hematocrit 31.6 L 36.0-46.0 % Mean Corpuscular Volume 86.9 80.0-100.0 fL Mean Corpuscular Hemoglobin 30.1 28.0-32.0 pg Mean Corpuscular Hemoglobin Concent 34.6 32.0-36.0 g/dL Red Cell Distribution Width 13.6 11.8-14.3 % Platelet Count 285 140-450 10^3/uL Mean Platelet Volume 6.9 6.9-10.8 fL Neutrophils (%) (Auto) 47.3 37.0-80.0 % Lymphocytes (%) (Auto) 37.0 10.0-50.0 % Monocytes (%) (Auto) 13.9 H 0.0-12.0 % Eosinophils (%) (Auto) 1.4 0.0-7.0 % Basophils (%) (Auto) 0.4 0.0-2.0 % Neutrophils # (Auto) 2.8 1.6-8.6 10 ^3/uL Lymphocytes # (Auto) 2.2 0.4-5.4 10 ^3/uL Monocytes # (Auto) 0.8 0-1.3 10 ^3/uL Eosinophils # (Auto) 0.1 0-0.8 10 ^3/uL Basophils # (Auto) 0 0-0.2 10 ^3/uL Nucleated Red Blood Cells 0.1 % Sodium Level 135 L 136-145 mmol/L Potassium Level 3.2 L 3.5-5.1 mmol/L Chloride Level 98 98-107 mmol/L Carbon Dioxide Level 25 20-31 mmol/L Anion Gap 12 5-15 Blood Urea Nitrogen 12 9-23 mg/dL Creatinine 1.02 0.550-1.02 mg/dL Glomerular Filtration Rate Calc 55 >90 mL/min BUN/Creatinine Ratio 11.8 10.0-20.0 Serum Glucose 105 74-106 mg/dL Calcium Level 9.5 8.7-10.4 mg/dL Magnesium Level 2.3 1.6-2.6 mg/dL Total Bilirubin 0.3 0.2-1.0 mg/dL Aspartate Amino Transferase (AST) 19 13-40 U/L Alanine Aminotransferase (ALT) < 9 7-40 U/L Alkaline Phosphatase 63 46-116 U/L Total Protein 6.5 5.7-8.2 g/dL Albumin 4.2 3.2-4.8 g/dL Prothrombin Time 11.4 9.3-11.8 sec Prothrombin Time INR 1.08 0.9-1.15 Activated Partial Thromboplast Time 31.0 24.5-34.5 SEC Lactic Acid Level 1.7 0.4-2.0 mmol/L Hepatitis B Surface Antigen Negative Negative Hepatitis C Antibody Negative Negative Urine Color Colorless Yellow Urine Clarity Clear Clear Urine pH 7.0 5.0-9.0 Urine Specific [place] 1.004 1.001-1.035 Urine Protein Negative Negative Urine Ketones Negative Negative Urine Blood Trace H Negative /uL Urine Nitrite Negative Negative Urine Bilirubin Negative Negative Urine Urobilinogen Normal Negative mg/dL Urine Leukocyte Esterase Negative Negative /uL Urine RBC <1 0 - 4 /hpf Urine Microscopic WBC 1 0-5 /HPF Urine Squamous Epithelial Cells Few <5 /hpf Urine Bacteria None seen None Seen /hpf Urine Glucose Normal Normal mg/dL Test 09/11/24 09:21 Range/Units POC Glucose 120 H 70-106 mg/dl Microbiology Date/Time Source Procedure Growth Status 09/11/24 10:33 Blood Blood Culture - Preliminary NO GROWTH AFTER 72 HOURS OF INCUBATION. Resulted Primary Diagnosis Right vulvar abscess Admitting Diagnosis: Continue IV antibiotics; we will discuss with Dr. Dash recommended incision and drainage vulva patient has full stomach right now just date. Plan discussed with: Patient Visit Coding OBGYN Date of Service: Sep 14, 2024 Billing Provider: JULIO YANEZ DO SALES OPERATIONS DIRECTOR Common Visit Codes: CONSULTATION ONLY SALES OPERATIONS DIRECTOR Consultation Codes: [id number] CONSULT <40MIN JULIO YANEZ DO Sep 14, 2024 23:53
[2024-09-15 01:04] VITALS: BP 150/72; PULSE 65; RESP 18; TEMP 97; O2SAT 100
[2024-09-15 05:00] VITALS: BP 124/65; PULSE 71; RESP 18; TEMP 97.2; O2SAT 97
--- NOTE | 2024-09-15 05:36 | DVHPN2 ---
Subjective Date Seen: Sep 15, 2024 Post op day Post op day: 0 Patient reports: No new complaints Nursing reports: No new complaints, No abdominal pain, No chest pain, No dizziness, No cough General: Normal HNT: Normal Musculoskeletal: Normal Neurological: Normal Objective Vitals Vital Sign Date Time Temp Pulse Resp B/P (MAP) Pulse Ox O2 Delivery O2 Flow Rate FiO2 09/15/24 01:04 97.0 65 18 150/72 (98) 100 97.0 09/14/24 20:00 Room Air* 0 21 Total Intake and Output 09/14/24 09/14/24 09/15/24 15:00 23:00 07:00 Intake Total 50 ml 560 ml 50 ml Balance 50 ml 560 ml 50 ml Medications Current Medications Medications Dose Ordered Sig/Ayden Route Start Time Stop Time Status Last Admin Dose Admin Sodium Chloride 10 ml Q8HR IV 09/11/24 14:00 09/15/24 05:16 10 ML Acetaminophen/ Hydrocodone Bitart 1 tab Q4HP PRN PO 09/11/24 13:15 Ondansetron HCl 4 mg Q4HP PRN IV 09/11/24 13:15 09/12/24 04:27 4 MG Docusate Sodium 100 mg BIDPRN PRN PO 09/11/24 13:15 09/15/24 05:16 100 MG Acetaminophen 650 mg Q6HP PRN PO 09/11/24 13:15 09/14/24 09:19 650 MG Morphine Sulfate 2 mg Q4HPRN PRN IV 09/11/24 13:15 09/12/24 04:25 2 MG Metoprolol Succinate 50 mg DAILY PO 09/11/24 14:00 Hold Carbamazepine 200 mg TID PO 09/11/24 14:00 09/15/24 05:16 200 MG Methocarbamol 750 mg TID PO 09/11/24 14:00 Hold Cefepime HCl 50 ml @ 12.5 mls/hr Q12HR IV 09/11/24 22:00 09/14/24 21:19 12.5 MLS/HR Lactulose 30 ml BIDPRN PRN PO 09/11/24 13:30 Phenobarbital 64.8 mg TID PO 09/11/24 22:00 09/15/24 05:16 64.8 MG Vancomycin HCl 300 ml @ 200 mls/hr DAILY@1700 IV 09/12/24 17:00 Cancel Diphenhydramine HCl 25 mg Q4HP PRN IV 09/11/24 19:15 09/14/24 21:03 25 MG Famotidine 20 mg DAILY PO 09/13/24 10:00 09/14/24 09:19 20 MG Gabapentin 300 mg TID PO 09/12/24 22:00 General: Normal Neck: Normal Abdominal: Normal Musculoskeletal: Normal Extremities: Normal Skin: Normal Neurological: Normal Labs and Microbiology Laboratory Tests 09/12/24 06:43 Test 09/12/24 06:43 Range/Units Serum Glucose 105 74-106 mg/dL Ass/Plan Assessment/Plan Dr. Dash physically available in [place] will be taking over her care; Dr. Granger be leaving [place] as my call shift has ended but can still be consulted by phone [phone]; Still recommending incision and drainage Prognosis: Guarded Plan discussed with With doctor Dash and patient. Visit Coding Surgery Date of Service if different f: Sep 15, 2024 Billing Provider: JULIO GRANGER DO Surgery Visit Codes: [id number] - INP CONSULT <40 MIN JULIO GRANGER DO Sep 15, 2024 05:36
[2024-09-15 08:30] VITALS: BP 150/79; PULSE 72; RESP 18; TEMP 97.8; O2SAT 100
[2024-09-15 10:02] LABS: Hematocrit 32.1 % (36.0-46.0); Hemoglobin 10.9 g/dL (12.2-16.2); Mean Corpuscular Hemoglobin 30.0 pg (28.0-32.0); Mean Corpuscular Volume 88.6 fL (80.0-100.0); Nucleated Red Blood Cells % 0.1 %
[2024-09-15 10:05] LABS: Potassium 3.9 mmol/L (3.5-5.1)
[2024-09-15 10:06] LABS: Anion Gap 9 (5-15); Carbon Dioxide 26 mmol/L (20-31)
[2024-09-15 10:07] LABS: Calcium 9.3 mg/dL (8.7-10.4)
[2024-09-15 10:11] LABS: BUN/Creatinine Ratio 19.0 (10.0-20.0); Blood Urea Nitrogen 15 mg/dL (9-23); Glucose 96 mg/dL (74-106)
[2024-09-15 10:12] LABS: Chloride 95 mmol/L (98-107); Sodium 130 mmol/L (136-145)
--- NOTE | 2024-09-15 12:17 | DVHPN2 ---
Subjective The patient is seen and examined at bedside. No complaint today however still have pain in the vulva area. Reviewed: Care Plan, H&P, Labs, Medications, Previous Orders, Radiology Changes from previous H/P or p: No Changes Eyes: No Pain, No Vision change, No Conjunctivae inflammation, No Eyelid inflammation, No Other, No Redness ENT: No Ear pain, No Ear discharge, No Nose pain, No Nose discharge, No Nose congestion, No Mouth pain, No Mouth swelling, No Throat pain, No Throat swelling, No Other Cardiovascular: No Chest Pain, No Palpitations, No Orthopnea, No Paroxysmal Noc. Dyspnea, No Edema, No Lt Headedness, No Other Respiratory: No Cough, No Dry, No Shortness of breath, No SOB with excertion, No Wheezing, No Hemoptysis, No Pleuritic Pain, No Sputum, No Other Gastrointestinal: No Nausea, No Vomiting, No Abdominal Pain, No Diarrhea, No Constipation, No Melena, No Hematochezia, No Other Genitourinary: No Dysuria, No Frequency, No Incontinence, No Hematuria, No Retention, No Other Musculoskeletal: No other, No neck pain, No shoulder pain, No arm pain, No back pain, No hand pain, No leg pain, No foot pain Skin: No Rash, No Lesions, No Jaundice, No Bruising; Other (abscess of vulva, pain, redness, purulent drainage) Objective Vitals Vital Signs Date Time Temp Pulse Resp B/P (MAP) Pulse Ox O2 Delivery O2 Flow Rate FiO2 09/15/24 08:30 97.8 72 18 150/79 (102) 100 97.8 09/15/24 08:05 Room Air* 0 21 Intake/Output Intake and Output 09/15/24 07:00 Intake Total 1160 ml Balance 1160 ml Intake Oral 1060 ml IV Total 100 ml # Voids 7 # Bowel Movements 1 General Appearance: Alert, Oriented X3, Cooperative, No acute distress HEENT: Atraumatic, PERRLA, EOMI, Mucous membr. 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) Neuro: Cranial nerves 3-12 NL Psych/Mental Status: Mental status NL Medications Current Medications Medications Dose Ordered Sig/Ayden Route Start Time Stop Time Status Last Admin Dose Admin Sodium Chloride 10 ml Q8HR IV 09/11/24 14:00 09/15/24 05:16 10 ML Acetaminophen/ Hydrocodone Bitart 1 tab Q4HP PRN PO 09/11/24 13:15 Ondansetron HCl 4 mg Q4HP PRN IV 09/11/24 13:15 09/12/24 04:27 4 MG Docusate Sodium 100 mg BIDPRN PRN PO 09/11/24 13:15 09/15/24 05:16 100 MG Acetaminophen 650 mg Q6HP PRN PO 09/11/24 13:15 09/14/24 09:19 650 MG Morphine Sulfate 2 mg Q4HPRN PRN IV 09/11/24 13:15 09/12/24 04:25 2 MG Metoprolol Succinate 50 mg DAILY PO 09/11/24 14:00 Hold Carbamazepine 200 mg TID PO 09/11/24 14:00 09/15/24 05:16 200 MG Methocarbamol 750 mg TID PO 09/11/24 14:00 Hold Cefepime HCl 50 ml @ 12.5 mls/hr Q12HR IV 09/11/24 22:00 09/15/24 10:24 12.5 MLS/HR Lactulose 30 ml BIDPRN PRN PO 09/11/24 13:30 Phenobarbital 64.8 mg TID PO 09/11/24 22:00 09/15/24 05:16 64.8 MG Vancomycin HCl 300 ml @ 200 mls/hr DAILY@1700 IV 09/12/24 17:00 Cancel Diphenhydramine HCl 25 mg Q4HP PRN IV 09/11/24 19:15 09/15/24 10:24 25 MG Famotidine 20 mg DAILY PO 09/13/24 10:00 09/15/24 10:24 20 MG Gabapentin 300 mg TID PO 09/12/24 22:00 Laboratory Results Laboratory Tests 09/15/24 09:12 Chemistry Test 09/15/24 09:12 Calcium Level 9.3 mg/dL (8.7-10.4) Urinalysis Test 09/11/24 09:35 Urine Color Colorless (Yellow) Urine Clarity Clear (Clear) Urine pH 7.0 (5.0-9.0) Urine Specific [place] 1.004 (1.001-1.035) Urine Protein Negative (Negative) Urine Ketones Negative (Negative) Urine Blood Trace /uL (Negative) H Urine Nitrite Negative (Negative) Urine Bilirubin Negative (Negative) Urine Urobilinogen Normal mg/dL (Negative) Urine Leukocyte Esterase Negative /uL (Negative) Urine RBC <1 /hpf (0 - 4) Urine Microscopic WBC 1 /HPF (0-5) Urine Squamous Epithelial Cells Few /hpf (<5) Urine Bacteria None seen /hpf (None Seen) Urine Glucose Normal mg/dL (Normal) Microbiology Microbiology Date/Time Source Procedure Growth Status 09/11/24 10:33 Blood Blood Culture - Preliminary NO GROWTH AFTER 72 HOURS OF INCUBATION. Resulted Assessment/Plan Assessment/Plan Abscess, vulva, Hypokalemia, Constipation, Hypertension, Seizures, GERD, Continuing current management. Continuing with IV antibiotic. Continuing with seizure medication and hypertensive medication. Replace electrolytes as needed. Continuing Colace for constipation. Per surgeon he did not do the I and D procedure of the vulvar. We will consulted OBGYN. Per VERTICAL BORING MILL OPERATOR, the patient will need I and D at bedside. Patient want to do it in OR with sedation?. Will DW VERTICAL BORING MILL OPERATOR, dr Dash. This medical document was created using an electronic medical record system with [employer] direct computerized dictation system. Although this document has been carefully reviewed, there may still be some phonetic and typographical errors. These areas are purely typographical due to imperfections of the software programs, and do not reflect any compromise in the patient's medical care. Plan discussed with: Patient Date of Service: Sep 15, 2024 Billing Provider: FRED STUART MD Common Visit Codes: [id number] INP/OBS CARE(HIGH) FRED STUART MD Sep 15, 2024 12:16
[2024-09-15 13:00] VITALS: BP 126/70; PULSE 74; RESP 16; TEMP 98.4; O2SAT 98
[2024-09-15 17:00] VITALS: BP 120/71; PULSE 71; RESP 17; TEMP 98.6; O2SAT 98
[2024-09-15 21:00] VITALS: BP 151/72; PULSE 72; RESP 15; TEMP 98.5; O2SAT 100
[2024-09-16 01:00] VITALS: BP 151/54; PULSE 66; RESP 14; TEMP 98; O2SAT 96
[2024-09-16 05:00] VITALS: BP 102/44; PULSE 63; RESP 14; TEMP 97.6; O2SAT 99
[2024-09-16 09:31] VITALS: BP 119/63; PULSE 63; RESP 17; TEMP 98; O2SAT 99
[2024-09-16 13:00] VITALS: BP 123/66; PULSE 64; RESP 17; TEMP 98.1; O2SAT 98
[2024-09-16] MEDS ORDERED: CLIN150C18 PO (13:15)
--- NOTE | 2024-09-16 13:16 | DVHDS2 ---
Discharge Summary Date of Admission Sep 11, 2024 at 13:01 Date of Discharge: Sep 16, 2024 Admitting Diagnosis Abscess, vulva, Hypokalemia, Constipation, Hypertension, Seizures, GERD, Labs/Diagnostic Data: Laboratory Results Test 09/15/24 09:12 09/14/24 16:05 09/12/24 06:43 09/11/24 10:33 White Blood Count 6.3 10^3/uL (4.4-10.8) Red Blood Count 3.62 10^6/uL (4.0-5.20) Hemoglobin 10.9 g/dL (12.2-16.2) Hematocrit 32.1 % (36.0-46.0) Mean Corpuscular Volume 88.6 fL (80.0-100.0) Mean Corpuscular Hemoglobin 30.0 pg (28.0-32.0) Mean Corpuscular Hemoglobin Concent 33.9 g/dL (32.0-36.0) Red Cell Distribution Width 13.4 % (11.8-14.3) Platelet Count 297 10^3/uL (140-450) Mean Platelet Volume 6.8 fL (6.9-10.8) Neutrophils (%) (Auto) 48.7 % (37.0-80.0) Lymphocytes (%) (Auto) 39.2 % (10.0-50.0) Monocytes (%) (Auto) 9.0 % (0.0-12.0) Eosinophils (%) (Auto) 2.5 % (0.0-7.0) Basophils (%) (Auto) 0.6 % (0.0-2.0) Neutrophils # (Auto) 3.1 10 ^3/uL (1.6-8.6) Lymphocytes # (Auto) 2.5 10 ^3/uL (0.4-5.4) Monocytes # (Auto) 0.6 10 ^3/uL (0-1.3) Eosinophils # (Auto) 0.2 10 ^3/uL (0-0.8) Basophils # (Auto) 0 10 ^3/uL (0-0.2) Nucleated Red Blood Cells 0.1 % Sodium Level 130 mmol/L (136-145) Potassium Level 3.9 mmol/L (3.5-5.1) Chloride Level 95 mmol/L (98-107) Carbon Dioxide Level 26 mmol/L (20-31) Anion Gap 9 (5-15) Blood Urea Nitrogen 15 mg/dL (9-23) Creatinine 0.79 mg/dL (0.550-1.02) Glomerular Filtration Rate Calc 75 mL/min (>90) BUN/Creatinine Ratio 19.0 (10.0-20.0) Serum Glucose 96 mg/dL (74-106) Calcium Level 9.3 mg/dL (8.7-10.4) Vancomycin Level Trough 3.4 ug/mL (5-10) Magnesium Level 2.3 mg/dL (1.6-2.6) Total Bilirubin 0.3 mg/dL (0.2-1.0) Aspartate Amino Transferase (AST) 19 U/L (13-40) Alanine Aminotransferase (ALT) < 9 U/L (7-40) Alkaline Phosphatase 63 U/L (46-116) Total Protein 6.5 g/dL (5.7-8.2) Albumin 4.2 g/dL (3.2-4.8) Prothrombin Time 11.4 sec (9.3-11.8) Prothrombin Time INR 1.08 (0.9-1.15) Activated Partial Thromboplast Time 31.0 SEC (24.5-34.5) Lactic Acid Level 1.7 mmol/L (0.4-2.0) Hepatitis B Surface Antigen Negative (Negative) Hepatitis C Antibody Negative (Negative) Test 09/11/24 09:35 09/11/24 09:21 Urine Color Colorless (Yellow) Urine Clarity Clear (Clear) Urine pH 7.0 (5.0-9.0) Urine Specific [place] 1.004 (1.001-1.035) Urine Protein Negative (Negative) Urine Ketones Negative (Negative) Urine Blood Trace /uL (Negative) Urine Nitrite Negative (Negative) Urine Bilirubin Negative (Negative) Urine Urobilinogen Normal mg/dL (Negative) Urine Leukocyte Esterase Negative /uL (Negative) Urine RBC <1 /hpf (0 - 4) Urine Microscopic WBC 1 /HPF (0-5) Urine Squamous Epithelial Cells Few /hpf (<5) Urine Bacteria None seen /hpf (None Seen) Urine Glucose Normal mg/dL (Normal) POC Glucose 120 mg/dl (70-106) Other Laboratory Tests 7/8/25 09:12 Brief Hx & Hospital Course: This is a 83 years old female with past medical history hypertension, seizure, GERD, history of multiple drug allergy and asthma come to emergency department for wound check. The patient had an abscess of her right labia about two weeks ago. She said because she wearing diaper and is had must have scratching her vulvar area that cause her to have abscess. The patient was admitted. The patient had wound care and also IV antibiotic. General surgeon was consulted 1st and stated that they will not do I and D in the labia area. Subsequently OBGYN was consulted. Dr. Granger see the patient and recommend I and D. However his shift ending and the care switch over to Dr. Dash. She recommend I and D at bedside. The patient adamant refused. Finally Dr. Dash recommend home health with wound care and warm compress. The patient will be discharged home with oral antibiotic for 10 days. The patient will have wound care at home. Advised to see OBGYN as outpatient for further follow up with her abscess. Physical exam: HEENT: Normocephalic atraumatic pupils equal react to light and accommodation. Extraocular muscles intact, conjunctiva pink, oropharynx moist, no thrush, no exudate. Lymphatic: No lymphadenopathy Cardiovascular exam: S1, S2 was heard. No murmurs, rubs, gallops Lung: Clear on auscultation bilaterally, no wheeze, rale, rhonchi. GI: Abdominal soft, nondistended, nontenderness, positive bowel sounds. Extremity: No crepitus, cyanosis, edema. Pedal pulses present bilateral. Full range of motion. Skin: Normal turgor, no rash. Psych: Alert, oriented x3. Neurology: No focal deficits, cranial nerve II to XII grossly intact. This medical document was created using an electronic medical record system with [employer] direct computerized dictation system. Although this document has been carefully reviewed, there may still be some phonetic and typographical errors. These areas are purely typographical due to imperfections of the software programs, and do not reflect any compromise in the patient's medical care. Condition at Discharge: Stable Final Diagnosis/Problems List Abscess, vulva, Hypokalemia, Constipation, Hypertension, Seizures, GERD, Discharge Disposition: Home with Health Services Discharge Instruct/Medications Diet: Cardiac 2g Na,low cholest Activity: No Restrictions, As Tolerated Follow Up/Referral: pcp 1-2 weeks CTRS if abcess is not resolved Medications: See med list Clindamycin 150mg tid x 10 days. Scheduled Carbamazepine (Carbamazepine), 200 MG PO TID, (Reported) Clindamycin Hcl (Clindamycin Hcl), 150 MG PO Q8HP Famotidine (Famotidine), 1 TAB PO BID, (Reported) Gabapentin (Gabapentin), 2 CAP PO BID, (Reported) Methocarbamol (Methocarbamol), 750 MG PO TID, (Reported) Metoprolol Succinate (Metoprolol Succinate Er), 50 MG PO DAILY, (Reported) Phenobarbital (Phenobarbital), 64.8 MG PO TID, (Reported) Discontinued Medications Benzonatate (Benzonatate), 1 CAP PO BID, (Reported) Diphenoxylate W/ Atropine (Diphenoxylate Hydrochlori 2.5-0.025 mg), 1 TAB PO 6XD, (Reported) Levofloxacin Hemihydrate (Levofloxacin), 500 MG PO DAILY Omeprazole (Gnp Omeprazole), 20 MG PO BID, (Reported) Phenobarbital (Phenobarbital), 32.4 MG PO TID, (Reported) Promethazine Hcl (Promethazine Hcl), 25 MG PO ONCE, (Reported) Discharge Statement: "Patient was advised to return to the ER or call 911 if any headaches, dizziness, shortness of breath, chest pain, abdominal pain, bleeding, fevers, or worsening of medical condition. Patient was counseled about treatment plan, medications, possible side effects, patientverbalized understanding. All questions were answered to the best of my ability. This discharge took greater then 30 minutes in planning, reviewing documentation, counseling the patient, and discussing with other team members." ASSESSMENT ASSESSMENT Assessment home health with wound care for vulva Date of Service: Sep 16, 2024 Billing Provider: FRED STUART MD Common Visit Codes: 66857-CCC/OBS DISCH DAY >30min FRED STUART MD Sep 16, 2024 13:16
[2024-09-16 16:46] VITALS: BP 146/73; PULSE 53; RESP 19; TEMP 97.2; O2SAT 95
== END 2024-09-16 18:00 | disposition home or self-care (01) | DRG 757 ==
LOC: ER 09:11 → OVERFLOW 13:01 → WEST WING 14:00
PROVIDERS: ADMIT Internal Medicine; ATTEND Internal Medicine
DX: N76.4 Abscess of vulva (principal); J18.9 Pneumonia, unspecified organism; J44.0 Chronic obstructive pulmonary disease with (acute) lower respiratory infection; K21.9 Gastro-esophageal reflux disease without esophagitis; E87.6 Hypokalemia; G40.909 Epilepsy, unspecified, not intractable, without status epilepticus; I10 Essential (primary) hypertension; K59.00 Constipation, unspecified; N20.0 Calculus of kidney; Z86.73 Personal history of transient ischemic attack (TIA), and cerebral infarction without residual deficits; Z88.0 Allergy status to penicillin; Z88.1 Allergy status to other antibiotic agents; Z88.5 Allergy status to narcotic agent; Z88.6 Allergy status to analgesic agent; Z90.710 Acquired absence of both cervix and uterus; Z91.013 Allergy to seafood; Z88.8 Allergy status to other drugs, medicaments and biological substances; Z79.899 Other long term (current) drug therapy
CPT/HCPCS: 36415; 71045; 74176; 80048; 80053; 80202; 81001; 82962; 83605; 83735; 85025; 85610; 85730; 86803; 87040; 87340; 93306; 96365; 96375; 99291; G0378; J1956; J2405